=== PATIENT | male | born 1955 | race Caucasian/White ===

== ENCOUNTER 2022-09-21 12:29 | Emergency (ER) | payer MEDICARE, SELFPAY ==
[2022-09-21 13:01] VITALS: BP 178/108; PULSE 86; RESP 20; TEMP 36.3; O2SAT 100; BMI 24.3
[2022-09-21 15:41] VITALS: BP 182/91; PULSE 80; TEMP 36.6; O2SAT 99
--- NOTE | 2022-09-21 15:52 | W.ED.ABDPA2 ---
HPI - Abdominal Pain General: Chief Complaint: Abdominal Pain Stated Complaint: abd pain, constipation Time Seen by Provider: 09/21/22 15:51 History of Present Illness: Mr. Camp is a 67-year-old gentleman presenting to the emergency department for left lower quadrant abdominal pain. Symptoms started approximately 2 days ago with no known specific provoking event. He does note associated constipation. Since onset symptoms have become constant and dull. Denies urinary symptoms or radiation to the penis or testicles. No fevers. He has had nausea but no vomiting. No other specific changes in health, exacerbating, or alleviating factors identified. Onset (ago): day(s) Pain Consistency: constant Location: LLQ Quality: aching and sharp Exacerbating factors: nothing Relieving factors: nothing Associated Symptoms: Reports constipation and nausea Review of Systems General: Reports: 10 or more systems reviewed and unremarkable except in HPI and below GI: Reports: nausea and constipation PFS ED PFSH: Medical History (Updated 09/24/22 @ 23:08 by Steven Bal MD) No significant past medical history Surgical History (Updated 09/24/22 @ 23:08 by Steven Bal MD) No significant past surgical history Physical Exam Const: COMMON NORMALS: alert GENERAL APPEARANCE: cooperative and well developed HENMT: COMMON NORMALS: normocephalic and atraumatic HEAD & SCALP: normocephalic and atraumatic Eye: COMMON NORMALS: conjunctivae normal CONJUNCTIVA: Yes conjunctivae normal SCLERA: sclerae normal Neck/C-Spine: COMMON NORMALS: supple GENERAL: Yes trachea midline Resp: COMMON NORMALS: clear to auscultation bilaterally EFFORT & INSPECTION: Yes able to speak in complete sentences AUSCULTATION: clear to auscultation bilaterally Cardio: COMMON NORMALS: regular rate and regular rhythm RATE: regular rate RHYTHM: regular rhythm GI: COMMON NORMALS: Soft to palpation PALPATION: Yes Soft to palpation, Yes Tenderness to palpation present (GI) Details: LLQ, No Guarding due to palpation present (GI) and No Rigid due to palpation Extremity: GENERAL: Yes normal exam except as noted and No edema Neuro: COMMON NORMALS: moves all extremities SENSORIUM/ORIENTATION: Yes alert and No Orientation impaired Psych: COMMON NORMALS: mental status grossly normal and Normal thought process present THOUGHT PROCESS: Normal thought process present Course Vital Signs: Vital signs: Vital Signs Temperature 97.8 F 09/21/22 15:41 Pulse Rate 84 09/21/22 18:35 Respiratory Rate 18 09/21/22 18:35 Blood Pressure 175/71 09/21/22 17:48 Pulse Oximetry 95 09/21/22 18:35 Oxygen Delivery Me thod Room Air 09/21/22 16:48 MDM - Abdominal Pain Medical Decision Making 67-year-old gentleman presenting to the emergency department for left lower quadrant abdominal pain. No evidence of acute surgical abdomen. Labs with leukocytosis, normal hemoglobin, mild dehydration on metabolic panel with preserved renal function. Urinalysis with hematuria CT demonstrates mild left hydroureteronephrosis and stranding suspicious for infection and mild abnormality of the bladder. Incidental findings discussed with patient. On reassessment patient feels improved. Exact etiology of patient symptoms is unclear, perhaps related to recently passed kidney stone or urinary infection which will be treated. He does have constipation though this patient stool burden does not appear to correlate with location of pain. The results of ED evaluation were discussed with the patient including prescriptions and/or symptomatic cares (if applicable) including appropriate and responsible use, followup plan, and return precautions. The patient verbalized understanding and felt safe for discharge. Medical Records I reviewed the patient's medical records. Lab Data I reviewed the patient's lab results. 09/21/22 16:05 09/21/22 16:05 Labs/Radiology: Radiology Impressions Abdomen/Pelvis CT 09/21/22 16:16 IMPRESSION: 1. Mild left hydronephrosis with urothelial thickening and periureteral stranding. This is suspicious for infection of the left renal collecting system. No visible calculus. 2. Left perinephric stranding. Pyelonephritis is not excluded. 3. Mild asymmetric thickening of the right urinary bladder wall. This could be infectious but a neoplastic process is not excluded. Follow-up with cystoscopy recommended. Laboratory Results WBC 14.1 10^3/uL (4.0-10.0) H 09/21/22 16:05 RBC 5.20 10^6/uL (4.1-5.3) 09/21/22 16:05 Hgb 15.6 g/dL (11.7-16.6) 09/21/22 16:05 Hct 47.3 % (42.0-52.0) 09/21/22 16:05 MCV 91.0 fl (80-94) 09/21/22 16:05 MCH 30.0 pg (28.0-34.0) 09/21/22 16:05 MCHC 33.0 g/dL (30.0-36.0) 09/21/22 16:05 RDW 11.8 % (12.1-15.1) L 09/21/22 16:05 Plt Count 429 10^3/cmm (130-400) H 09/21/22 16:05 MPV 9.9 fL (7.4-10.4) 09/21/22 16:05 Neut % (Auto) 89.6 % 09/21/22 16:05 Lymph % (Auto) 4.2 % 09/21/22 16:05 Ellis % (Auto) 5.3 % 09/21/22 16:05 Eos % (Auto) 0.1 % 09/21/22 16:05 Baso % (Auto) 0.4 % 09/21/22 16:05 Neut # (Auto) 12.58 10^3/uL (1.8-7.7) H 09/21/22 16:05 Lymph # (Auto) 0.6 10^3/uL (0.8-4.8) L 09/21/22 16:05 Ellis # (Auto) 0.8 10^3/uL (0.2-0.9) 09/21/22 16:05 Eos # (Auto) 0.0 10^3/uL (0.0-0.8) 09/21/22 16:05 Baso # (Auto) 0.1 10^3/uL (0.0-0.1) 09/21/22 16:05 Nucleated RBC % (auto) 0 % 09/21/22 16:05 Nucleated RBCs # 0.0 /100WBC 09/21/22 16:05 Sodium 130 mmol/L (136-145) L 09/21/22 16:05 Potassium 4.2 mmol/L (3.5-5.1) 09/21/22 16:05 Chloride 93 mmol/L (98-107) L 09/21/22 16:05 Carbon Dioxide 24 mmol/L (22-29) 09/21/22 16:05 Anion Gap 17.2 (5-19) 09/21/22 16:05 BUN 16 mg/dL (8-23) 09/21/22 16:05 Creatinine 1.2 mg/dL (0.7-1.2) 09/21/22 16:05 GFR Calculation 60.4 mL/min (90-130) L 09/21/22 16:05 Glucose 141 mg/dL (65-115) H 09/21/22 16:05 Calculated Osmolality 274 mOsm/kg (285-295) L 09/21/22 16:05 Calcium 9.7 mg/dL (8.5-10.5) 09/21/22 16:05 Total Bilirubin 0.5 mg/dL (0.15-1.2) 09/21/22 16:05 AST 20 U/L (0-40) 09/21/22 16:05 ALT 22 U/L (0-41) 09/21/22 16:05 Alkaline Phosphatase 136 U/L (40-130) H 09/21/22 16:05 Total Protein 8.0 g/dL (6.6-8.7) 09/21/22 16:05 Albumin 4.5 g/dL (3.5-5.2) 09/21/22 16:05 Globulin 3.5 g/dL (1.3-4.6) 09/21/22 16:05 Lipase 14 U/L (13-60) 09/21/22 16:05 Urine Color Yellow (Yellow) 09/21/22 16:47 Urine Appearance Clear (CLEAR) 09/21/22 16:47 Urine pH 5 (5-7) 09/21/22 16:47 Ur Specific [place] 1.020 (1.005-1.030) 09/21/22 16:47 Urine Protein Trace (Negative) 09/21/22 16:47 Urine Glucose (UA) Norm (Normal) 09/21/22 16:47 Urine Ketones 1+ (Negative) H 09/21/22 16:47 Urine Blood 2+ (Negative) H 09/21/22 16:47 Urine Nitrate Negative (Negative) 09/21/22 16:47 Urine Bilirubin Neg (Negative) 09/21/22 16:47 Urine Urobilinogen Norm mg/dL (Negative) 09/21/22 16:47 Ur Leukocyte Esterase Trace (Negative) H 09/21/22 16:47 Urine RBC 0-4 /hpf (0-2) H 09/21/22 16:47 Urine WBC 0-4 /hpf (0-5) H 09/21/22 16:47 Ur Squamous Epith Cells None /hpf (0-5) 09/21/22 16:47 Amorphous Sediment Not Reportable 09/21/22 16:47 Urine Bacteria Trace /hpf (NONE) 09/21/22 16:47 Hyaline Casts 0-4 /lpf H 09/21/22 16:47 Urine Mucus 1+ /hpf 09/21/22 16:47 Discharge Plan Discharge Patient Disposition: Home Clinical Impression: Acute UTI, Colic, ureteral, Abdominal pain, acute, left lower quadrant, Dehydration, mild Condition: Stable Prescriptions: New ondansetron 4 mg tablet,disintegrating 4 mg PO Q8H PRN (Reason: nausea and vomiting) Qty: 15 0RF oxycodone 5 mg tablet 5 mg PO Q4H PRN (Reason: pain) Qty: 10 0RF ciprofloxacin HCl 500 mg tablet 500 mg PO BID Qty: 20 0RF tamsulosin 0.4 mg capsule 0.4 mg PO DAILY Qty: 20 0RF Discharge Orders: Discharge ED (Routine); Ordered 09/21/22 Ordered By: Steven Bal Discharge Diet: Usual diet Discharge Activity: Increase activity as tolerated Patient Instructions: Kidney Stones (ED), Hematuria (ED), Abdominal Pain (ED), Opioid Safety Activity Restrictions/Additional Instructions: Thank you for visiting the emergency department. You were seen and evaluated for abdominal pain. The exact cause of your symptoms is unclear though may be related to recently passed kidney stone or mild urinary tract infection. I will treat this with pain medication, use oxycodone cautiously as it is an opioid. We will also treat you with Flomax, antinausea medication, and antibiotics. You may use wqhj-[id number] medications such as acetaminophen and ibuprofen for pain however please do not exceed the daily recommended dosage as listed on the packaging and please keep in mind that many namebrand medications contain the same active ingredients. Please avoid these medications if previously instructed to do so by another physician due to other underlying medical condition. Please ensure that you are staying hydrated. Please follow-up with your primary care provider. As discussed I do recommend repeat urinalysis in 2 weeks to ensure that symptoms of resolved and referral from primary care to urology if symptoms persist. Return to the emergency department for increased pain, inability to tolerate medications, fevers, overall worsening, or anything else that you are concerned about and feel needs emergency department evaluation. Coding Level of Care Code ED [employer] Year [employer] for Ruslan Pedraza
[2022-09-21] MEDS: morphine 4 mg/mL SDV 1 mL IVP (16:04)
[2022-09-21 16:15] LABS: Basophils # 0.1 10^3/uL (0.0-0.1); Basophils % 0.4 %; Eosinophils % 0.1 %; Hematocrit 47.3 % (42.0-52.0); Hemoglobin 15.6 g/dL (11.7-16.6); Lymphocytes # 0.6 10^3/uL (0.8-4.8); Lymphocytes % 4.2 %; Mean Platelet Volume 9.9 fL (7.4-10.4); Monocytes # 0.8 10^3/uL (0.2-0.9); Monocytes % 5.3 %; Neutrophils # 12.58 10^3/uL (1.8-7.7); Neutrophils % 89.6 %; Nucleated Red Blood Cells % 0 %; Platelet Count 429 10^3/cmm (130-400); Red Cell Distribution Width 11.8 % (12.1-15.1); White Blood Count 14.1 10^3/uL (4.0-10.0)
--- NOTE | 2022-09-21 16:16 | CTR_ITS ---
PROCEDURE INFORMATION: Exam: CT Abdomen And Pelvis With Contrast Exam date and time: 09/21/2022 4:54 PM Age: 67 years old Clinical indication: Abdominal tenderness; Prior surgery; Surgery date: 6+ months; Surgery type: Hernia; Additional info: Llq pain TECHNIQUE: Imaging protocol: Computed tomography of the abdomen and pelvis with contrast. Radiation optimization: All CT scans at this facility use at least one of these dose optimization techniques: automated exposure control; mA and/or kV adjustment per patient size (includes targeted exams where dose is matched to clinical indication); or iterative reconstruction. Contrast material: OMNI 350; Contrast volume: 100 ml; Contrast route: INTRAVENOUS (IV); REPORTING DATA: Count of CT and Cardiac NM exams in prior 12 months: This patient has received 0 known CTs and 0 known cardiac nuclear medicine studies in the 12 months prior to the current study. COMPARISON: CT abdomen pelvis w con* [id number] 05/29/2016 4:42 AM RADIATION DOSE METRICS: Total DLP (mGy-cm): 508.33 FINDINGS: Tubes, catheters and devices: Clips in the right lower quadrant. Liver: Normal. No mass. Gallbladder and bile ducts: Normal. No calcified stones. No ductal dilation. Pancreas: Normal. No ductal dilation. Spleen: Normal. No splenomegaly. Adrenal glands: Normal. No mass. Kidneys and ureters: Mild left hydronephrosis. Urothelial thickening and mild enhancement in the left collecting system. No visible calculus. Mild perinephric stranding, left greater than right. Left periureteral fat stranding. Stomach and bowel: Mild diverticulosis of the colon. No diverticulitis. Appendix: The appendix is not visualized. No secondary signs of appendicitis. Intraperitoneal space: Unremarkable. No free air. No significant fluid collection. Vasculature: Arterial calcifications. No aneurysm. Lymph nodes: Small retroperitoneal lymph nodes are most likely reactive. Urinary bladder: Mild asymmetric thickening of the right lateral wall of the urinary bladder. Reproductive: Inhomogenous prostate with a calcification. Bones/joints: Degenerative changes at L5-S1. No fracture. Soft tissues: Right inguinal hernia containing fat and a short loop of nonobstructed distal small bowel. Small fat containing umbilical hernia. CT/CT abdomen pelvis w con* [id number] IMPRESSION: 1. Mild left hydronephrosis with urothelial thickening and periureteral stranding. This is suspicious for infection of the left renal collecting system. No visible calculus. 2. Left perinephric stranding. Pyelonephritis is not excluded. 3. Mild asymmetric thickening of the right urinary bladder wall. This could be infectious but a neoplastic process is not excluded. Follow-up with cystoscopy recommended.
[2022-09-21 16:34] LABS: Alanine Aminotransferase 22 U/L (0-41); Albumin Level 4.5 g/dL (3.5-5.2); Alkaline Phosphatase 136 U/L (40-130); Anion Gap 17.2 (5-19); Aspartate Amino Transferase 20 U/L (0-40); Blood Urea Nitrogen 16 mg/dL (8-23); Calcium 9.7 mg/dL (8.5-10.5); Carbon Dioxide 24 mmol/L (22-29); Chloride 93 mmol/L (98-107); Globulin 3.5 g/dL (1.3-4.6); Glomerular Filtration Rate 60.4 mL/min (90-130); Glucose 141 mg/dL (65-115); Lipase 14 U/L (13-60); Osmolality Calculated 274 mOsm/kg (285-295); Potassium 4.2 mmol/L (3.5-5.1); Sodium 130 mmol/L (136-145); Total Bilirubin 0.5 mg/dL (0.15-1.2)
[2022-09-21 16:48] VITALS: BP 183/88; PULSE 79; RESP 16; O2SAT 99
[2022-09-21] MEDS: iohexol 350 mg/mL 500 mL Btl (per mL) IV (16:59)
[2022-09-21 17:47] LABS: Add Urine Microscopic? YES; Bilirubin Urine Neg (Negative); Blood Urine 2+ (Negative); Glucose Urine UA Norm (Normal); Ketones Urine 1+ (Negative); Leukocyte Esterase Urine Trace (Negative); Nitrate Urine Negative (Negative); Protein Urine Trace (Negative); Urine Appearance Clear (CLEAR); Urine Color Yellow (Yellow); Urobilinogen Urine Norm (Negative); pH Urine 5 (5-7)
[2022-09-21 17:48] VITALS: BP 175/71; PULSE 68; RESP 16; O2SAT 98
[2022-09-21 17:48] LABS: Add Urine Culture? No; Bacteria Urine TRACE /hpf; Hyaline Casts Urine 0-4 /lpf; Mucus Urine 1+ /hpf; RBC Urine 0-4 /hpf (0-2); WBC Urine 0-4 /hpf (0-5)
[2022-09-21] MEDS: ketorolac 30 mg/mL INJ 15 MG IVP (17:59)
[2022-09-21 18:35] VITALS: PULSE 84; RESP 18; O2SAT 95
--- NOTE | 2022-09-25 10:38 | DCPLANNER ---
company manager was triggered to call patient due to no primary care physician - phone number for patient is the hospital phone number.
== END 2022-09-21 18:37 | disposition home or self-care (01) ==
PROVIDERS: Family Medicine; Emergency Provider Emergency Medicine
DX: N39.0 Urinary tract infection, site not specified (principal); N23 Unspecified renal colic; N13.30 Unspecified hydronephrosis; E86.0 Dehydration
CPT/HCPCS: 36415; 74177; 80053; 81001; 83690; 85025; 96374; 96375; 99285; J1885; J2270; Q9967

== ENCOUNTER 2023-08-22 16:43 | Inpatient (IN) | payer MEDICARE, MEDICAID, SELFPAY ==
[2023-08-22] VITALS (32 sets, daily range): BP systolic 87–132; BP diastolic 58–93; PULSE 83–142; RESP 9–27; TEMP 36.3–36.4; O2SAT 93–100; BMI 16.4; BMI 14.3
--- NOTE | 2023-08-22 16:47 | XRR_ITS ---
PROCEDURE INFORMATION: Exam: XR Abdomen Exam date and time: 08/22/2023 5:22 PM Age: 68 years old Clinical indication: Other: Diarrhea; Additional info: Weakness, diarrhea TECHNIQUE: Imaging protocol: Radiologic exam of the abdomen. Views: 2 Views. Upright and supine views. COMPARISON: CT abdomen pelvis w con* [id number] 09/21/2022 4:54 PM FINDINGS: Lungs: Included image of the chest demonstrates hyperinflation compatible with COPD without confluence consolidation. No obvious acute radiographic abnormality in the visualized mediastinum cardiac silhouette or osseous structures. Gastrointestinal tract: [id number] volume colonic stool. Evidence of free subdiaphragmatic air on the upright image. Intraperitoneal space: See Gastrointestinal tract finding. Bones/joints: [id number] degenerative endplate spurring in the mid lumbar spine. XR/XR acute abdomen series [id number] IMPRESSION: [id number] amount of retained formed colonic stool.
--- NOTE | 2023-08-22 17:01 | PC.NURSE ---
UNABLE TO OBTAIN O2 AT TRIAGE. ATTEMPTED FINGER PROBE, EAR PROBE, AND FOREHEAD SENSOR. DERRICK, RT, PRESENT AT TRIAGE. PROVIDER NOTIFIED.
--- NOTE | 2023-08-22 17:09 | W.ED.WEAKNES ---
Documented by User: Karina Garza MD 08/22/23 17:58 HPI - Weakness General: Chief complaint: Weakness Stated complaint: WEAKNESS Time Seen by Provider: 08/22/23 16:45 History of Present Illness: 68-year-old man with a history of dementia, hyperlipidemia and BPH who presents to the emergency room by ambulance that was called by a predictive maintenance technician who had not seen him in a while. He had found him on the floor of his home. Patient says he has had diarrhea for about a month. He had collapsed to the ground yesterday and could not get up. He said he is becoming more and more weak. No focal abdominal pain. No chest pain. No focal motor deficits. He is alert and oriented and follows commands and answers questions appropriately. He appears extremely cachectic and dry. Review of Systems Narrative: Constitutional symptoms: Negative except as documented in HPI. Skin symptoms: Negative except as documented in HPI. Eye symptoms: Negative except as documented in HPI. ENMT symptoms: Negative except as documented in HPI. Respiratory symptoms: Negative except as documented in HPI. Cardiovascular symptoms: Negative except as documented in HPI. Gastrointestinal symptoms: Negative except as documented in HPI. Genitourinary symptoms: Negative except as documented in HPI. Musculoskeletal symptoms: Negative except as documented in HPI. Neurologic symptoms: Negative except as documented in HPI. Psychiatric symptoms: Negative except as documented in HPI. Endocrine symptoms: Negative except as documented in HPI. [facility] ED PFSH: Medical History (Updated 08/22/23 @ 21:17 by Benoit Vargas DO) Psychiatric care No significant past medical history Surgical History (Updated 09/24/22 @ 23:08 by Steven Bal MD) No significant past surgical history Physical Exam Narrative: EXAM NARRATIVE: General: Patient appears somewhat ill and extremely cachectic. He has temporal wasting. Skin: Warm, dry. Head: Normocephalic, atraumatic. Neck: Supple, trachea midline. Eye: Extraocular movements are intact. Ears, nose, mouth and throat: Dry oral mucosa Cardiovascular: Regular, Normal peripheral perfusion. Respiratory: Lungs are clear to auscultation, respirations are non-labored, breath sounds are equal, Symmetrical chest wall expansion. Gastrointestinal: Soft, Nontender, Non distended, Normal bowel sounds. Musculoskeletal: Normal ROM, no deformity. Neurological: Alert and oriented, No focal neurological deficit observed. Psychiatric: Cooperative, appropriate mood & affect. Course Vital Signs: Vital signs: Vital Signs Temperature 97.3 F L 08/22/23 16:45 Pulse Rate 91 08/22/23 20:45 Respiratory Rate 20 H 08/22/23 20:45 Blood Pressure 106/73 08/22/23 20:45 Pulse Oximetry 99 08/22/23 20:45 Oxygen Delivery Me thod Room Air 08/22/23 18:45 MDM - Weakness Medical Decision Making Medical decision making: Differential diagnosis including but not limited to and based on the above HPI, review of systems and physical exam: In this elderly patient with generalized nonfocal weakness with diarrhea I would have concern for renal failure. Will check a CBC for anemia and possible leukocytosis. He reports no recent antibiotics so C. difficile is not high on my differential but CBC will help delineate that. Also ordering a CK as he has been on the ground. Orders placed to evaluate differential diagnosis based on the above differential, HPI and physical exam Lab Review: Laboratory results were reviewed and interpreted by myself the emergency room physician. So far with his back is a CBC. White count is 9.5. Patient is not anemic with a hemoglobin of 15.9. EKG: Time 1705 p.m. rate 118. Sinus tachycardia. Pulmonary disease pattern, No ST-T changes, no ectopy, normal IA & QRS intervals, This was reviewed and interpreted by myself the ER physician. Acute abdominal series: chest x-ray: Emphysematous appearing lungs with slightly flattened diaphragms. The right diaphragm was not seen on these x-rays. No acute process. No obvious infiltrates. No pneumothorax. No cardiomegaly. This was reviewed and interpreted by myself the emergency room physician Abdomen x-ray: What appears to be constipation with balls of stool throughout the colon. There appears to be gas throughout the bowels. I do not see any signs of obstruction. Nonspecific bowel gas pattern. No evidence of free air or obstruction. This was reviewed and interpreted by myself the emergency room physician. Patient care transitioned to oncoming doc at shift change. Lab Data 08/22/23 17:25 08/22/23 17:25 Radiology Impressions Chest/Abdomen X-ray 08/22/23 16:47 IMPRESSION: Qmisidrh-yf-crglw amount of retained formed colonic stool. Abdomen/Pelvis CT 08/22/23 18:24 IMPRESSION: 1. Findings consistent with locally advanced (likely T4) rectal neoplasm until proven otherwise. Nodular perirectal soft tissue abutting the pelvic floor and right seminal vesicle. Serosal deposit along the distal sigmoid. Right periorbital/ischiorectal abscess or contained perforation appears to be present, up to 3.5 x 1.6 cm. 2. Nodular thickening of the adrenal suspicious for metastatic disease is new since 09/21/2022 . Mildly enlarged celiac and gastrohepatic lymph nodes . Right upper quadrant omental nodularity versus adenopathy. 3. Findings consistent with large volume deep vein thrombus in the left iliac and femoral veins. 4. Severe weight loss compared to 09/21/2022 scan. Tmmpxnal-ay-fkgrh volume colonic stool retention. ADDENDUM: 08/22/231922 COMMENT: THIS REPORT CONTAINS FINDINGS THAT MAY BE CRITICAL TO PATIENT CARE. The exam findings were verbally communicated by me to BENOIT Munoz via telephone conference at 7:19 PM CDT on 08/22/2023. The findings were acknowledged and understood. Laboratory Results WBC 9.57 10^3/uL (3.29-11.43) 08/22/23 17:25 RBC 5.45 10^6/uL (3.85-5.65) 08/22/23 17:25 Hgb 15.90 g/dL (11.27-16.99) 08/22/23 17:25 Hct 50.3 % (37-53) 08/22/23 17:25 MCV 92.3 fl (82-101) 08/22/23 17:25 MCH 29.2 pg (27-33) 08/22/23 17: MCHC 31.6 g/dL (30-55) 08/22/23 17:25 RDW 17.1 % (12.1-15.1) H 08/22/23 17:25 Plt Count 417 10^3/cmm (157-399) H 08/22/23 17:25 MPV 10.8 fL (7.4-10.4) H 08/22/23 17:25 Neut % (Auto) 83.2 % 08/22/23 17: Lymph % (Auto) 12.2 % 08/22/23 17: Swift % (Auto) 3.9 % 08/22/23 17:25 Eos % (Auto) 0.1 % 08/22/23 17:25 Baso % (Auto) 0.4 % 08/22/23 17:25 Neut # (Auto) 7.96 10^3/uL (1.8-7.7) H 08/22/23 17:25 Lymph # (Auto) 1.2 10^3/uL (0.8-4.8) 08/22/23: Swift # (Auto) 0.4 10^3/uL (0.2-0.9) 08/22/23 17:25 Eos # (Auto) 0.0 10^3/uL (0.0-0.8) 08/22/23 17: Baso # (Auto) 0.0 10^3/uL (0.0-0.1) 08/22/23: Nucleated RBC % (auto) 0 % 08/22/23: Nucleated RBCs # 0.0 /100WBC 08/22/23 17:25 Sodium 137 mmol/L (136-145) 08/22/23 17: Potassium 4.6 mmol/L (3.5-5.1) 08/22/23 17: Chloride 89 mmol/L (98-107) L 08/22/23:25 Carbon Dioxide 25 mmol/L (22-29) 08/22/23 17:25 Anion Gap 27.6 (5-19) H 08/22/23 17:25 BUN 40 mg/dL (8-23) H 08/22/23 17:25 Creatinine 1.5 mg/dL (0.7-1.2) H 08/22/23 17:25 GFR Calculation 46.5 mL/min (90-130) L 08/22/23 17:25 Glucose 161 mg/dL (65-115) H 08/22/23 17:25 Calculated Osmolality 297 mOsm/kg (285-295) H 08/22/23 17:25 Lactic Acid 5.5 mmol/L (0.5-2.2) H* 08/22/23 17:25 Calcium 10.3 mg/dL (8.5-10.5) 08/22/23 17: Magnesium 2.4 mg/dL (1.7-2.3) H 08/22/23 17:25 Total Bilirubin 2.9 mg/dL (0.15-1.2) H 08/22/23 17:25 AST 15 U/L (0-40) 08/22/23 17:25 ALT 8 U/L (0-41) 08/22/23 17:25 Alkaline Phosphatase 144 U/L (40-130) H 08/22/23 17:25 Creatine Kinase 23 U/L (39-308) L 08/22/23 17:25 C-Reactive Protein 14.3 mg/L (0.0-4.9) H 08/22/23 17:25 Total Protein 7.1 g/dL (6.6-8.7) 08/22/23 17: Albumin 3.6 g/dL (3.5-5.2) 08/22/23 17: Globulin 3.5 g/dL (1.3-4.6) 08/22/23 17:25 Amylase 27 U/L (28-100) L 08/22/23 17: Lipase 14 U/L (13-60) 08/22/23 17:25 Urine Color Brown (Yellow) A 08/22/23 20:10 Urine Appearance Clear (CLEAR) 08/22/23 20:10 Urine pH 5 (5-7) 08/22/23 20:10 Ur Specific Melville 1.020 (1.005-1.030) 08/22/23 20:10 Urine Protein 1+ (Negative) H 08/22/23 20:10 Urine Glucose (UA) Norm (Normal) 08/22/23 20:10 Urine Ketones 1+ (Negative) H 08/22/23 20:10 Urine Blood Trace (Negative) H 08/22/23 20:10 Urine Nitrate Positive (Negative) H 08/22/23 20:10 Urine Bilirubin 2+ (Negative) H 08/22/23 20:10 Urine Urobilinogen 4+ mg/dL (Negative) H 08/22/23 20:10 Ur Leukocyte Esterase Trace (Negative) H 08/22/23 20:10 Urine RBC 5-10 /hpf (0-2) H 08/22/23 20:10 Urine WBC 5-10 /hpf (0-5) H 08/22/23 20:10 Ur Squamous Epith Cells 0-4 /hpf (0-5) H 08/22/23 20:10 Amorphous Sediment 1+ /hpf 08/22/23 20:10 Urine Bacteria 2+ /hpf (NONE) H 08/22/23 20:10 Hyaline Casts 0-4 /lpf H 08/22/23 20:10 Urine Mucus 2+ /hpf 08/22/23 20:10 Serum Ketones Negative (Negative) 08/22/23 17:25 XR interpretation done by ED provider, pending radiology final review Discharge Plan Discharge Patient Disposition: Placed in Observation Clinical Impression: Rectal mass, Acute dehydration, Acidosis, lactic Condition: Serious Coding Level of Care Code ED Manager Books for Chg Fwd Documented by User: Benoit Vargas DO 08/22/23 21:17 HPI - Weakness General: Chief complaint: Weakness Stated complaint: WEAKNESS Time Seen by Provider: 08/22/23 16:45 PFS ED PFSH: Medical History (Updated 08/22/23 @ 21:17 by Benoit Vargas DO) Psychiatric care No significant past medical history Surgical History (Updated 09/24/22 @ 23:08 by Steven Bal MD) No significant past surgical history Course Vital Signs: Vital signs: Vital Signs Temperature 97.3 F L 08/22/23 16:45 Pulse Rate 91 08/22/23 20:45 Respiratory Rate 20 H 08/22/23 20:45 Blood Pressure 106/73 08/22/23 20:45 Pulse Oximetry 99 08/22/23 20:45 Oxygen Delivery Me thod Room Air 08/22/23 18:45 MDM - Weakness Medical Decision Making Medical decision making: Differential diagnosis including but not limited to and based on the above HPI, review of systems and physical exam: In this elderly patient with generalized nonfocal weakness with diarrhea I would have concern for renal failure. Will check a CBC for anemia and possible leukocytosis. He reports no recent antibiotics so C. difficile is not high on my differential but CBC will help delineate that. Also ordering a CK as he has been on the ground. Orders placed to evaluate differential diagnosis based on the above differential, HPI and physical exam Lab Review: Laboratory results were reviewed and interpreted by myself the emergency room physician. So far with his back is a CBC. White count is 9.5. Patient is not anemic with a hemoglobin of 15.9. EKG: Time 1705 p.m. rate 118. Sinus tachycardia. Pulmonary disease pattern, No ST-T changes, no ectopy, normal IA & QRS intervals, This was reviewed and interpreted by myself the ER physician. Acute abdominal series: chest x-ray: Emphysematous appearing lungs with slightly flattened diaphragms. The right diaphragm was not seen on these x-rays. No acute process. No obvious infiltrates. No pneumothorax. No cardiomegaly. This was reviewed and interpreted by myself the emergency room physician Abdomen x-ray: What appears to be constipation with balls of stool throughout the colon. There appears to be gas throughout the bowels. I do not see any signs of obstruction. Nonspecific bowel gas pattern. No evidence of free air or obstruction. This was reviewed and interpreted by myself the emergency room physician. Patient care transitioned to oncoming doc at shift change. Patient taken over at shift change. This patient has a rectal mass with what appears to be occlusion or near occlusion of the lumen. There is constipation that is significant. His lactic acid is 5.5. He is received more fluid than required for sepsis bolus. Antibiotics will be started. There is a small abscess with perforation of the mass apparent. I spoke with our surgeon, who is a general surgeon, who is concerned about trying to treat the patient here. Suggest consultation with colorectal surgery. We have a call out to other facilities for this. Spoke with Dr. Champion, colorectal surgery at [facility] in [place]. She has taken a look at the patient's images. She is not as concerned about the small perforation/fluid collection, and she believes it is part of the chronic mass process. She notes that if the patient looks clinically okay otherwise, she would allow the patient home, on antibiotics to be safe, although he probably does not necessarily need them, and follow him up as an outpatient for colonoscopy, diagnosis, etc. Since the patient is quite weak, has a lactic of 5.5, needs fluid resuscitation, and further acute treatment, we will observe here, do the above, and likely release for colorectal surgery recommendations as above once treated. Spoke with hospitalist, he agrees to see the patient. Lab Data 08/22/23 17:25 08/22/23 17:25 Radiology Impressions Chest/Abdomen X-ray 08/22/23 16:47 IMPRESSION: Trfoitle-is-rfdws amount of retained formed colonic stool. Abdomen/Pelvis CT 08/22/23 18:24 IMPRESSION: 1. Findings consistent with locally advanced (likely T4) rectal neoplasm until proven otherwise. Nodular perirectal soft tissue abutting the pelvic floor and right seminal vesicle. Serosal deposit along the distal sigmoid. Right periorbital/ischiorectal abscess or contained perforation appears to be present, up to 3.5 x 1.6 cm. 2. Nodular thickening of the adrenal suspicious for metastatic disease is new since 09/21/2022 . Mildly enlarged celiac and gastrohepatic lymph nodes . Right upper quadrant omental nodularity versus adenopathy. 3. Findings consistent with large volume deep vein thrombus in the left iliac and femoral veins. 4. Severe weight loss compared to 09/21/2022 scan. Jadmxxvu-ql-optmb volume colonic stool retention. ADDENDUM: 08/22/231922 COMMENT: THIS REPORT CONTAINS FINDINGS THAT MAY BE CRITICAL TO PATIENT CARE. The exam findings were verbally communicated by me to BENOIT Munoz via telephone conference at 7:19 PM CDT on 08/22/2023. The findings were acknowledged and understood. Laboratory Results WBC 9.57 10^3/uL (3.29-11.43) 08/22/23 17: RBC 5.45 10^6/uL (3.85-5.65) 08/22/23 17: Hgb 15.90 g/dL (11.27-16.99) 08/22/23 17: Hct 50.3 % (37-53) 08/22/23 17: MCV 92.3 fl (82-101) 08/22/23 17: MCH 29.2 pg (27-33) 08/22/23 17: MCHC 31.6 g/dL (30-55) 08/22/23 17: RDW 17.1 % (12.1-15.1) H 08/22/23 17: Plt Count 417 10^3/cmm (157-399) H 08/22/23 17: MPV 10.8 fL (7.4-10.4) H 08/22/23 17: Neut % (Auto) 83.2 % 08/22/23 17: Lymph % (Auto) 12.2 % 08/22/23: Swift % (Auto) 3.9 % 08/22/23: Eos % (Auto) 0.1 % 08/22/23: Baso % (Auto) 0.4 % 08/22/23: Neut # (Auto) 7.96 10^3/uL (1.8-7.7) H 08/22/23: Lymph # (Auto) 1.2 10^3/uL (0.8-4.8) 08/22/23: Swift # (Auto) 0.4 10^3/uL (0.2-0.9) 08/22/23: Eos # (Auto) 0.0 10^3/uL (0.0-0.8) 08/22/23: Baso # (Auto) 0.0 10^3/uL (0.0-0.1) 08/22/23: Nucleated RBC % (auto) 0 % 08/22/23 Nucleated RBCs # 0.0 /100WBC 08/22/23: Sodium 137 mmol/L (136-145) 08/22/23: Potassium 4.6 mmol/L (3.5-5.1) 08/22/23: Chloride 89 mmol/L (98-107) L 08/22/23: Carbon Dioxide 25 mmol/L (22-29) 08/22/23 17:25 Anion Gap 27.6 (5-19) H 08/22/23 17:25 BUN 40 mg/dL (8-23) H 08/22/23:25 Creatinine 1.5 mg/dL (0.7-1.2) H 08/22/23:25 GFR Calculation 46.5 mL/min (90-130) L 08/22/23: Glucose 161 mg/dL (65-115) H 08/22/23:25 Calculated Osmolality 297 mOsm/kg (285-295) H 08/22/23 17:25 Lactic Acid 5.5 mmol/L (0.5-2.2) H* 08/22/23 17:25 Calcium 10.3 mg/dL (8.5-10.5) 08/22/23 17:25 Magnesium 2.4 mg/dL (1.7-2.3) H 08/22/23 17:25 Total Bilirubin 2.9 mg/dL (0.15-1.2) H 08/22/23 17:25 AST 15 U/L (0-40) 08/22/23 17:25 ALT 8 U/L (0-41) 08/22/23 17:25 Alkaline Phosphatase 144 U/L (40-130) H 08/22/23 17:25 Creatine Kinase 23 U/L (39-308) L 08/22/23 17:25 C-Reactive Protein 14.3 mg/L (0.0-4.9) H 08/22/23 17:25 Total Protein 7.1 g/dL (6.6-8.7) 08/22/23 17: Albumin 3.6 g/dL (3.5-5.2) 08/22/23 17: Globulin 3.5 g/dL (1.3-4.6) 08/22/23 17: Amylase 27 U/L (28-100) L 08/22/23 17: Lipase 14 U/L (13-60) 08/22/23 17:25 Urine Color Brown (Yellow) A 08/22/23 20:10 Urine Appearance Clear (CLEAR) 08/22/23 20:10 Urine pH 5 (5-7) 08/22/23 20:10 Ur Specific Melville 1.020 (1.005-1.030) 08/22/23 20:10 Urine Protein 1+ (Negative) H 08/22/23 20:10 Urine Glucose (UA) Norm (Normal) 08/22/23 20:10 Urine Ketones 1+ (Negative) H 08/22/23 20:10 Urine Blood Trace (Negative) H 08/22/23 20:10 Urine Nitrate Positive (Negative) H 08/22/23 20:10 Urine Bilirubin 2+ (Negative) H 08/22/23 20:10 Urine Urobilinogen 4+ mg/dL (Negative) H 03/17/24 20:10 Ur Leukocyte Esterase Trace (Negative) H 08/22/23 20:10 Urine RBC 5-10 /hpf (0-2) H 08/22/23 20:10 Urine WBC 5-10 /hpf (0-5) H 08/22/23 20:10 Ur Squamous Epith Cells 0-4 /hpf (0-5) H 08/22/23 20:10 Amorphous Sediment 1+ /hpf 08/22/23 20:10 Urine Bacteria 2+ /hpf (NONE) H 08/22/23 20:10 Hyaline Casts 0-4 /lpf H 08/22/23 20:10 Urine Mucus 2+ /hpf 08/22/23 20:10 Serum Ketones Negative (Negative) 08/22/23 17:25 Discharge Plan Discharge Patient Disposition: Placed in Observation Clinical Impression: Rectal mass, Acute dehydration, Acidosis, lactic Condition: Serious Coding Level of Care Code ED Manager Books for Ruslan Pedraza
[2023-08-22] MEDS: sodium chloride 0.9% 1,000 ML 999 ML IV ×2 (17:29→19:03)
[2023-08-22 17:37] LABS: Basophils % 0.4 %; Eosinophils % 0.1 %; Hematocrit 50.3 % (37-53); Lymphocytes # 1.2 10^3/uL (0.8-4.8); Lymphocytes % 12.2 %; Mean Corpuscular HGB Conc 31.6 g/dL (30-55); Mean Corpuscular Hemoglobin 29.2 pg (27-33); Mean Corpuscular Volume 92.3 fl (82-101); Mean Platelet Volume 10.8 fL (7.4-10.4); Monocytes # 0.4 10^3/uL (0.2-0.9); Monocytes % 3.9 %; Neutrophils # 7.96 10^3/uL (1.8-7.7); Neutrophils % 83.2 %; Nucleated Red Blood Cells % 0 %; Platelet Count 417 10^3/cmm (157-399); Red Blood Count 5.45 10^6/uL (3.85-5.65); Red Cell Distribution Width 17.1 % (12.1-15.1); White Blood Count 9.57 10^3/uL (3.29-11.43)
[2023-08-22 17:50] LABS: Ketone (Acetest) Serum Negative (Negative)
[2023-08-22 18:01] LABS: Alanine Aminotransferase 8 U/L (0-41); Albumin Level 3.6 g/dL (3.5-5.2); Alkaline Phosphatase 144 U/L (40-130); Amylase 27 U/L (28-100); Anion Gap 27.6 (5-19); Aspartate Amino Transferase 15 U/L (0-40); Blood Urea Nitrogen 40 mg/dL (8-23); Calcium 10.3 mg/dL (8.5-10.5); Carbon Dioxide 25 mmol/L (22-29); Chloride 89 mmol/L (98-107); Creatine Phosphokinase 23 U/L (39-308); Globulin 3.5 g/dL (1.3-4.6); Glomerular Filtration Rate 46.5 mL/min (90-130); Glucose 161 mg/dL (65-115); Lipase 14 U/L (13-60); Magnesium 2.4 mg/dL (1.7-2.3); Osmolality Calculated 297 mOsm/kg (285-295); Potassium 4.6 mmol/L (3.5-5.1); Sodium 137 mmol/L (136-145); Total Bilirubin 2.9 mg/dL (0.15-1.2); Total Protein 7.1 g/dL (6.6-8.7)
[2023-08-22 18:08] LABS: Lactic Sepsis W/Reflex 5.5 mmol/L (0.5-2.2)
--- NOTE | 2023-08-22 18:24 | CTR_ITS ---
PROCEDURE INFORMATION: Exam: CT Abdomen And Pelvis With Contrast Exam date and time: 08/22/2023 6:37 PM Age: 68 years old Clinical indication: Other: Diarrhea; Abdominal pain; Generalized; Additional info: Abd pain, diarrhea, sepsis TECHNIQUE: Imaging protocol: Computed tomography of the abdomen and pelvis with contrast. Radiation optimization: All CT scans at this facility use at least one of these dose optimization techniques: automated exposure control; mA and/or kV adjustment per patient size (includes targeted exams where dose is matched to clinical indication); or iterative reconstruction. Contrast material: OMNI 350; Contrast volume: 75 ml; Contrast route: INTRAVENOUS (IV); COMPARISON: CT abdomen pelvis w con* [id number] 09/21/2022 4:54 PM RADIATION DOSE METRICS: Total DLP (mGy-cm): 297.93 FINDINGS: Lungs: Mild bandlike a atelectasis in the bilateral lower lobes. Liver: Mild periportal edema. Gallbladder and bile ducts: No gallbladder is mildly distended without wall thickening. Pancreas: Diffuse aipu-bu-mhozrxrk involutional atrophy of the pancreas again noted without clear-cut ductal dilatation or focal lesion. Spleen: Normal. No splenomegaly. Adrenal glands: Nodular thickening of the left adrenal gland measuring up to 1.6 x 1 cm has developed corresponding to minimal nodularity on prior study. Mild thickening of the right adrenal gland has also developed without clear-cut measurable nodule. Kidneys and ureters: Nonobstructive 2 mm left renal stone is new. No hydronephrosis. Stomach and bowel: Pput-nx-vsiilssy wall thickening of the rectum , increased from prior. A focal band of soft tissue that appears tethered to the mesorectal fascia in the right posterior paramedian region (series 3, image 52) . Nodular rectal wall thickening measuring up to 1.7 x 1.6 cm (image 62) , adjacent hyperenhancing soft tissue nodularity up to 2.9 x 1.6 cm in the right mesorectum, abutting the base of the right seminal vesicle (series 3 image 62) as well as the lateral wall of the rectum, pelvic floor and adjacent rectosigmoid junction (series 5, image 39) . Additional nodularity up to 2 cm in the mesorectum/meso sigmoid (image 40). Appendix: the appendix is not visualized. Presumed appendectomy. Intraperitoneal space: Enhancing omental nodules versus adenopathy in the right upper quadrant (image 27).. No free air. No significant fluid collection. Vasculature: Findings consistent with large volume deep vein thrombus in the visualized left femoral vein, profundus femoris vein and left external and common iliac veins to the bifurcation level. Lymph nodes: Several mildly enlarged gastrohepatic ligament and periportal lymph nodes have developed to 1 3 cm in diameter. No other adenopathy identified. Urinary bladder: A 3 mm stone is present in the left bladder base/UV junction, new. Bladder is moderately distended with mild wall thickening similar to prior. Reproductive: Prostate is moderately enlarged. Bones/joints: Moderate facet arthropathy in the lower lumbar spine. Moderate to advanced disc space narrowing and endplate sclerosis and vacuum phenomenon at L5-S1 level. Usebhwun-mm-mnogl disc bulge with canal stenosis at L5-S1 level, unchanged. Soft tissues: Significant diffuse loss of the subcutaneous fat and mesenteric fat has occurred consistent with significant weight loss. Further inferiorly there is and apparent extraluminal collection measuring 3.5 x 1.6 cm in the right ischiorectal fossa (image 70) suggestive of contained perforation/perirectal abscess. Large amount of solid stool throughout the right and left colon. CT/CT abdomen pelvis w con* [id number] IMPRESSION: 1. Findings consistent with locally advanced (likely T4) rectal neoplasm until proven otherwise. Nodular perirectal soft tissue abutting the pelvic floor and right seminal vesicle. Serosal deposit along the distal sigmoid. Right periorbital/ischiorectal abscess or contained perforation appears to be present, up to 3.5 x 1.6 cm. 2. Nodular thickening of the adrenal suspicious for metastatic disease is new since 09/21/2022 . Mildly enlarged celiac and gastrohepatic lymph nodes . Right upper quadrant omental nodularity versus adenopathy. 3. Findings consistent with large volume deep vein thrombus in the left iliac and femoral veins. 4. Severe weight loss compared to 09/21/2022 scan. Ixxvvawr-mg-jatom volume colonic stool retention.
[2023-08-22] MEDS: iohexol 350 mg/mL 500 mL Btl (per mL) IV (18:37)
[2023-08-22 19:00] LABS: C Reactive Protein 14.3 mg/L (0.0-4.9)
[2023-08-22 19:22] LABS: Reflex Lactate Order REFLEX LACTIC ORDERD
[2023-08-22 20:32] LABS: Bilirubin Urine 2+ (Negative); Blood Urine Trace (Negative); Glucose Urine UA Norm (Normal); Ketones Urine 1+ (Negative); Nitrate Urine Positive (Negative); Protein Urine 1+ (Negative); Urine Appearance Clear (CLEAR); Urine Color Brown (Yellow); Urobilinogen Urine 4+ mg/dL (Negative); pH Urine 5 (5-7)
[2023-08-22 20:33] LABS: Add Urine Culture? Yes; Amorphous Sediment Urine 1+ /hpf; Bacteria Urine 2+ /hpf; Hyaline Casts Urine 0-4 /lpf; Leukocyte Esterase Urine Trace (Negative); Mucus Urine 2+ /hpf; Squamous Epithelial Cell Urine 0-4 /hpf (0-5)
[2023-08-22] MEDS: piperacillin-tazobactam 3.375 GM in sodium chloride 0.9% (plus) 50 ML IV (20:58)
--- NOTE | 2023-08-22 21:17 | W.ED.WEAKNES ---
HPI - Weakness General: Chief complaint: Weakness Stated complaint: WEAKNESS Time Seen by Provider: 08/22/23 16:45 [facility] ED PFSH: Medical History (Updated 08/22/23 @ 21:17 by eBnoit Vargas DO) Psychiatric care No significant past medical history Surgical History (Updated 09/24/22 @ 23:08 by Steven Bal MD) No significant past surgical history Course Vital Signs: Vital signs: Vital Signs Temperature 97.3 F L 08/22/23 16:45 Pulse Rate 91 08/22/23 20:45 Respiratory Rate 20 H 08/22/23 20:45 Blood Pressure 106/73 08/22/23 20:45 Pulse Oximetry 99 08/22/23 20:45 Oxygen Delivery Me thod Room Air 08/22/23 18:45 MDM - Weakness Lab Data 08/22/23 17:25 08/22/23 17:25 Radiology Impressions Chest/Abdomen X-ray 08/22/23 16:47 IMPRESSION: Jwvbvcee-[id number]-nzcza amount of retained formed colonic stool. Abdomen/Pelvis CT 08/22/23 18:24 IMPRESSION: 1. Findings consistent with locally advanced (likely T4) rectal neoplasm until proven otherwise. Nodular perirectal soft tissue abutting the pelvic floor and right seminal vesicle. Serosal deposit along the distal sigmoid. Right periorbital/ischiorectal abscess or contained perforation appears to be present, up to 3.5 x 1.6 cm. 2. Nodular thickening of the adrenal suspicious for metastatic disease is new since 09/21/2022 . Mildly enlarged celiac and gastrohepatic lymph nodes . Right upper quadrant omental nodularity versus adenopathy. 3. Findings consistent with large volume deep vein thrombus in the left iliac and femoral veins. 4. Severe weight loss compared to 09/21/2022 scan. Ojjitali-db-kptgd volume colonic stool retention. ADDENDUM: 08/22/231922 COMMENT: THIS REPORT CONTAINS FINDINGS THAT MAY BE CRITICAL TO PATIENT CARE. The exam findings were verbally communicated by me to BENOIT Munoz via telephone conference at 7:19 PM CDT on 08/22/2023. The findings were acknowledged and understood. Laboratory Results WBC 9.57 10^3/uL (3.29-11.43) 08/22/23 17:25 RBC 5.45 10^6/uL (3.85-5.65) 08/22/23: Hgb 15.90 g/dL (11.27-16.99) 08/22/23: Hct 50.3 % (37-53) 08/22/23: MCV 92.3 fl (82-101) 08/22/23: MCH 29.2 pg (27-33) 08/22/23: MCHC 31.6 g/dL (30-55) 08/22/23: RDW 17.1 % (12.1-15.1) H 08/22/23: Plt Count 417 10^3/cmm (157-399) H 08/22/23: MPV 10.8 fL (7.4-10.4) H 08/22/23: Neut % (Auto) 83.2 % 08/22/23: Lymph % (Auto) 12.2 % 08/22/23: Toombs % (Auto) 3.9 % 08/22/23: Eos % (Auto) 0.1 % 08/22/23: Baso % (Auto) 0.4 % 08/22/23: Neut # (Auto) 7.96 10^3/uL (1.8-7.7) H 08/22/23: Lymph # (Auto) 1.2 10^3/uL (0.8-4.8) 08/22/23: Toombs # (Auto) 0.4 10^3/uL (0.2-0.9) 08/22/23: Eos # (Auto) 0.0 10^3/uL (0.0-0.8) 08/22/23: Baso # (Auto) 0.0 10^3/uL (0.0-0.1) 08/22/23: Nucleated RBC % (auto) 0 % 08/22/23: Nucleated RBCs # 0.0 /100WBC 08/22/23: Sodium 137 mmol/L (136-145) 08/22/23: Potassium 4.6 mmol/L (3.5-5.1) 08/22/23:25 Chloride 89 mmol/L (98-107) L 08/22/23 17:25 Carbon Dioxide 25 mmol/L (22-29) 08/22/23 17:25 Anion Gap 27.6 (5-19) H 08/22/23 17:25 BUN 40 mg/dL (8-23) H 08/22/23 17:25 Creatinine 1.5 mg/dL (0.7-1.2) H 08/22/23 17:25 GFR Calculation 46.5 mL/min (90-130) L 08/22/23 17:25 Glucose 161 mg/dL (65-115) H 08/22/23 17:25 Calculated Osmolality 297 mOsm/kg (285-295) H 08/22/23 17:25 Lactic Acid 5.5 mmol/L (0.5-2.2) H* 08/22/23 17:25 Calcium 10.3 mg/dL (8.5-10.5) 08/22/23: Magnesium 2.4 mg/dL (1.7-2.3) H 08/22/23 17:25 Total Bilirubin 2.9 mg/dL (0.15-1.2) H 08/22/23 17:25 AST 15 U/L (0-40) 08/22/23 17:25 ALT 8 U/L (0-41) 08/22/23 17:25 Alkaline Phosphatase 144 U/L (40-130) H 08/22/23 17:25 Creatine Kinase 23 U/L (39-308) L 08/22/23 17:25 C-Reactive Protein 14.3 mg/L (0.0-4.9) H 08/22/23 17:25 Total Protein 7.1 g/dL (6.6-8.7) 08/22/23 17:25 Albumin 3.6 g/dL (3.5-5.2) 08/22/23 17:25 Globulin 3.5 g/dL (1.3-4.6) 08/22/23 17:25 Amylase 27 U/L (28-100) L 08/22/23 17:25 Lipase 14 U/L (13-60) 08/22/23 17:25 Urine Color Brown (Yellow) A 08/22/23 20:10 Urine Appearance Clear (CLEAR) 08/22/23 20:10 Urine pH 5 (5-7) 08/22/23 20:10 Ur Specific [place] 1.020 (1.005-1.030) 08/22/23 20:10 Urine Protein 1+ (Negative) H 08/22/23 20:10 Urine Glucose (UA) Norm (Normal) 08/22/23 20:10 Urine Ketones 1+ (Negative) H 08/22/23 20:10 Urine Blood Trace (Negative) H 08/22/23 20:10 Urine Nitrate Positive (Negative) H 08/22/23 20:10 Urine Bilirubin 2+ (Negative) H 08/22/23 20:10 Urine Urobilinogen 4+ mg/dL (Negative) H 08/22/23 20:10 Ur Leukocyte Esterase Trace (Negative) H 08/22/23 20:10 Urine RBC 5-10 /hpf (0-2) H 08/22/23 20:10 Urine WBC 5-10 /hpf (0-5) H 08/22/23 20:10 Ur Squamous Epith Cells 0-4 /hpf (0-5) H 08/22/23 20:10 Amorphous Sediment 1+ /hpf 08/22/23 20:10 Urine Bacteria 2+ /hpf (NONE) H 08/22/23 20:10 Hyaline Casts 0-4 /lpf H 08/22/23 20:10 Urine Mucus 2+ /hpf 08/22/23 20:10 Serum Ketones Negative (Negative) 08/22/23 17:25 Discharge Plan Discharge Patient Disposition: Placed in Observation Clinical Impression: Rectal mass, Acute dehydration, Acidosis, lactic Coding Level of Care Code ED Certified Control Systems Technician for Ruslan Pedraza
[2023-08-22 21:24] LABS: Lactic Acid level (Lactate) 2.8 mmol/L (0.5-2.2)
--- NOTE | 2023-08-22 21:37 | P.HP_ITS ---
Providers/Chief Complaint 2 Admitting Physician: Shahana Barnes MD Chief Complaint: WEAKNESS History of Present Illness Tito Camp is a 68 year old male who lives in an apartment, brought in by EMS covered in feces with unkept appearance. Patient is stating that for last 1 day he has been extremely lethargic and fatigued he could not change his position in the bed nor could get up. He did not experience any chest pain, shortness of breath, nausea or vomiting he has been experiencing loose stools, he has lost about 30 pounds in the last few weeks, history of intake has been poor, he eats frozen food, does not smoke or drink alcohol stating that colonoscopy was done in the past which showed precancerous polyp, never had any diagnosis of cancer as such, stating that his brother was diagnosed with stomach cancer who in his 30s, patient is stating that there is no family around him they are mostly in [place], here he is in touch with sister and [id number] stating that in case he is not able to make decision we should speak with them. As per the EMS patient was covered in feces apartment was in bad shape. Patient has not eaten well for days. Not complaining active pain. 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 Champion at [facility] she recommended no surgical intervention as changes appear to be chronic you can read detailed note by the ER physician because he contacted the colorectal surgeon before asking hospitalist to admit the patient here Considering the fact patient is not showing symptoms afebrile no leukocytosis and CT scan findings are most consistent with rectal mass I did discuss all the findings with the patient frankly, discussed staging of the cancer possible advanced age with mets with weight loss, poor functional status not been able to walk we are not sure about eligibility for chemotherapy patient would like to think about if he would agree for histopathological diagnosis He is leaning towards comfort measures in case of cardiac arrest arrest would like to make his final decision by the morning Patient stating that he has no cardiac history, no history of diabetes Review of Systems 2 Const: Reports: chills, body aches, change in weight, fatigue, malaise and night sweats Eyes: Denies: change in vision ENMT: Denies: throat pain Card: Denies: chest pain Resp: Denies: dyspnea GI: Reports: nausea and diarrhea; Denies: abdominal pain : Denies: flank pain Musc: Denies: neck pain Skin/Breast: Reports: rash Neuro: Denies: headache(s) Psych: Denies: anxiety Medications/Allergies Home Medications Medication Instructions Recorded Confirmed Last Taken Type ciprofloxacin HCl 500 mg tablet 500 mg PO BID #20 tabs 09/21/22 Unknown Rx ondansetron 4 mg disintegrating 4 mg PO Q8H PRN nausea and 09/21/22 Unknown Rx tablet vomiting #15 tabs oxycodone 5 mg tablet 5 mg PO Q4H PRN pain #10 tabs 09/21/22 Unknown Rx tamsulosin 0.4 mg capsule 0.4 mg PO DAILY #20 caps 09/21/22 Unknown Rx donepezil 5 mg tablet 5 mg PO DAILY 03/22/23 03/22/23 Unknown History simvastatin 5 mg tablet 5 mg PO DAILY 03/22/23 03/22/23 Unknown History venlafaxine 225 mg tablet,extended 225 mg PO DAILY 03/22/23 03/22/23 Unknown History release 24 hr Allergies Allergy/AdvReac Type Severity Reaction Status Date / Time No Known Allergies Allergy Verified 08/22/23 17:01 PFSH Acute 2 PFSH: Medical History Psychiatric care No significant past medical history Surgical History No significant past surgical history Vitals/I&O/Wt Last Vital Signs Temp 97.3 F L 08/22/23 16:45 Pulse 91 08/22/23 20:45 Resp 20 H 08/22/23 20:45 BP 106/73 08/22/23 20:45 Pulse Ox 99 08/22/23 20:45 O2 Del Method Room Air 08/22/23 18:45 08/22/23 08/22/23 08/22/23 06:59 14:59 22:59 Intake Total 1999 Balance 1999 Weight last 48 hrs Weight 50.349 kg Physical Exam 2 Narrative: Emaciated malnourished Unkept appearance Significant muscle mass loss Sarcopenia No abdominal pain No active emesis Able to communicate S1, S2 Hypertensive Currently on room air Foul-smelling leg secondary to fecal matter Data 08/22/23 17:25 08/22/23 17:25 A&P Assessment and plan (1) Rectal mass: (2) Acute dehydration: (3) Acidosis, lactic: (4) Constipation: (5) DIDIER (acute kidney injury): (6) Protein calorie malnutrition: (7) UTI (urinary tract infection): (8) Sepsis: (9) DVT (deep venous thrombosis): Plan 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, significant lymphadenopathy around celiac axis Concern for advanced age cancer Patient is extremely weak and lethargic He is not sure about going forward with histopathological diagnosis Considering poor functional status eligibility for chemotherapy at this point is questionable Patient lives alone in an apartment In touch with brother and [id number] He is not sure about his CODE STATUS but stating that we should make him comfortable if his heart or breathing stops He will let us know his final seen by the morning It is very overwhelming for him right now His case was discussed to correct the surgeon at [facility] who recommended nonsurgical intervention I will go ahead and put patient on IV antibiotics with clear liquid diet Most likely patient will need palliative care referral snf placement Severe constipation Avoid stimulants because of mass Will try lactulose Patient is having loose stools already Monitor for any signs of worsening DVT: Cancer related Start therapeutic Lovenox Emaciated malnourished protein calorie malnourishment: Severe Dietary consultation DIDIER related dehydration Anticipate improvement with hydration Sepsis related to UTI I will cover broadly with vancomycin and Zosyn, reason being chances of perforation considering significant rectal mass Patient is full code for now Clear liquid diet DVT prophylaxis sufficed with therapeutic Lovenox Patient stating that he never had any cardiac disease never had any stent placed he is a non-smoker Stating he has a family history Brother in his 30s secondary to stomach cancer BPH: Place Langston catheter Attestations 2 Medical Necessity Statement*: More than 2 midnights anticipated Diagnoses Rectal mass K62.89 Acute dehydration E86.0 Acidosis, lactic E87.20 Constipation K59.00 DIDIER (acute kidney injury) N17.9 Protein calorie malnutrition E46 UTI (urinary tract infection) N39.0 Sepsis A41.9 DVT (deep venous thrombosis) I82.409
[2023-08-22 23:19] LABS: Procalcitonin 0.34 ng/mL (0-0.5)
[2023-08-22] MEDS: enoxaparin 100 mg/mL Syringe 50 MG SUBCUT (23:26)
[2023-08-22] MEDS: sodium chloride 0.9% 1,000 ML 75 ML IV (23:26)
[2023-08-22 23:36] LABS: Uric Acid 7.5 mg/dL (3.4-7.0)
[2023-08-22 23:37] LABS: Creatine Phosphokinase 27 U/L (39-308)
[2023-08-22 23:58] LABS: Vitamin B12 > 2000 pg/mL (232-1245)
[2023-08-23] VITALS (8 sets, daily range): BP systolic 84–100; BP diastolic 54–66; PULSE 68–88; RESP 15–16; TEMP 36.4–36.7; O2SAT 92–99
--- NOTE | 2023-08-23 00:01 | USCV_ITS ---
Tito Camp Age: 68 Gender: M : 1955 Exam Date: 08/23/2023 08:09 Ordering Phys: Shahana Barnes MD Technologist: [place] [facility] [place]: ? mi BP: 137 / 87 HR: 79 Rhythm: Sinus Technical Quality: Very technically difficult study MEASUREMENTS (Male / Female) Normal Values DOPPLER AV Peak Velocity 117.0 cm/s LVOT Peak Velocity 74.0 cm/s MV Area PHT 4.2 cm squared Mitral E to A Ratio 1.0 TR Peak Velocity 215.0 cm/s TR Peak Gradient 18.5 mmHg TV Peak E Velocity 77.0 cm/s Right Atrial Pressure 3.0 mmHg Pulmonary Artery Systolic Pressu 21.5 mmHg PV Peak Velocity 91.0 cm/s FINDINGS Left Ventricle Possibly normal LV size and ejection fraction. Segmental wall motion analysis difficult. Only subcostal views are obtained Right Ventricle Possibly normal RV size and ejection fraction Right Atrium Possibly of normal size. Left Atrium Possibly of normal size Mitral Valve No gross abnormalities noted Aortic Valve No gross abnormalities noted Tricuspid Valve No gross abnormalities noted Pulmonic Valve Pulmonic valve not well visualized. Pericardium No pericardial effusion. Aorta Aorta not well visualized. IVC Inferior vena cava not visualized. CONCLUSIONS Possibly normal LV size and ejection fraction of around 55%. Segmental wall motion analysis is difficult because of the poor ultrasonic window Possibly normal RV size and ejection fraction There is no pericardial effusion. Technically difficult study because of the poor ultrasonic window. Only subcostal views were obtained Dr Darlin Sanchez MD [facility] (Electronically Signed) Final Date: 23 August 2023 22:43 S
[2023-08-23] MEDS: vancomycin 750 MG in sodium chloride 0.9% 250 ML 250 MG IV (00:25)
[2023-08-23 01:28] LABS: Basophils % 0.2 %; Lymphocytes # 0.7 10^3/uL (0.8-4.8); Lymphocytes % 7.7 %; Mean Corpuscular HGB Conc 31.5 g/dL (30-55); Mean Corpuscular Volume 92.2 fl (82-101); Mean Platelet Volume 10.5 fL (7.4-10.4); Monocytes # 0.5 10^3/uL (0.2-0.9); Monocytes % 5.4 %; Neutrophils # 8.25 10^3/uL (1.8-7.7); Neutrophils % 86.4 %; Nucleated Red Blood Cells % 0 %; Platelet Count 298 10^3/cmm (157-399); Red Blood Count 4.34 10^6/uL (3.85-5.65); Red Cell Distribution Width 17.1 % (12.1-15.1); White Blood Count 9.56 10^3/uL (3.29-11.43)
[2023-08-23 01:49] LABS: Lactic Sepsis W/Reflex 2.4 mmol/L (0.5-2.2)
[2023-08-23 01:50] LABS: Troponin T (5th) Once 37 ng/L (0-15)
[2023-08-23 01:51] LABS: Anion Gap 18.6 (5-19); Blood Urea Nitrogen 39 mg/dL (8-23); C Reactive Protein 18.1 mg/L (0.0-4.9); Calcium 9.2 mg/dL (8.5-10.5); Carbon Dioxide 28 mmol/L (22-29); Chloride 96 mmol/L (98-107); Creatine Phosphokinase 36 U/L (39-308); Creatinine Clr Calc Pharmacy 33.9146; Glomerular Filtration Rate 54.9 mL/min (90-130); Glucose 91 mg/dL (65-115); Lactate Dehydrogenase 201 U/L (135-225); Magnesium 2.1 mg/dL (1.7-2.3); Osmolality Calculated 295 mOsm/kg (285-295); Potassium 4.6 mmol/L (3.5-5.1); Sodium 138 mmol/L (136-145)
[2023-08-23 01:58] LABS: NT Pro B Type Natriuretic Pept 589 pg/mL (0-125)
[2023-08-23 03:12] LABS: Reflex Lactate Order REFLEX LACTIC ORDERD
[2023-08-23 04:57] LABS: Lactic Acid level (Lactate) 1.6 mmol/L (0.5-2.2)
[2023-08-23] MEDS: pantoprazole 40 mg SDV IVP ×2 (08:22→17:34)
[2023-08-23] MEDS: piperacillin-tazobactam 3.375 GM in sodium chloride 0.9% (plus) 50 ML IV ×2 (08:22→20:36)
--- NOTE | 2023-08-23 09:49 | P.PN_ITS ---
Documented by User: Leslie Smith, MELI STD 08/23/23 10:36 Subjective 2 Subjective: Patient resting in bed on room air, denies chest pain, and shortness of breath at this time. Reports he was unable to sleep last night due having frequent bowel movements. He states he has been getting more and more week over the last couple of months. He does have a sister living close by here in [place]. Medications: Reviewed: Yes Vitals/I&O/Wt Last Vital Signs Temp 97.7 F 08/23/23 08:27 Pulse 80 08/23/23 08:27 Resp 16 08/23/23 08:27 BP 90/64 08/23/23 08:27 Pulse Ox 98 08/23/23 08:27 O2 Del Method Room Air 08/23/23 08:27 08/22/23 08/23/23 08/23/23 22:59 06:59 14:59 Intake Total 2049 / 2049 1450 / 3500 410 / 410 Output Total 300 / 300 Balance 2049 1150 / 3200 410 / 410 Weight last 48 hrs Weight 99 lb 2 oz Weight 97 lb 3.2 oz Weight 111 lb Physical Exam 2 Narrative: General Exam: Patient appears malnourished. Noted to be alert, no apparent distress. Neck supple, no lymphadenopathy. Resp: on room air, lungs sounds diminished to auscultation, denies SOB with excertion Cardio: no JVD, regular rate, regular rhythm GI: nontender, normoactive bowel sounds Skin: no rash noted. 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 Patient reports constipation, and having several loose bowel movements. Continue lactulose. Consult surgery for possible biopsy of mass. (2) UTI (urinary tract infection): Continue Vancomycin, Zoysn. Langston catheter in place. Urine culture pending. (3) Sepsis: Continue board spectrum antibiotics, consult surgery. Blood culture pending. Urine culture pending. Echo pending (4) Protein calorie malnutrition: Dietary consultation. Ensure as dietary supplement Consult OT, PT. (5) DVT (deep venous thrombosis): Continue with therapeutic Lovenox. (6) DIDIER (acute kidney injury): Likely due to dehydration, slight improvement noted this am. Langston catherter in place, monitor I&Os. BMP in the am. Plan Clear liquid Coding Level of Care Code 29836 Diagnoses Rectal mass K62.89 UTI (urinary tract infection) N39.0 Sepsis A41.9 Protein calorie malnutrition E46 DVT (deep venous thrombosis) I82.409 DIDIER (acute kidney injury) N17.9 Time Spent (min) 31 Documented by User: Adalberto Herman MD 08/23/23 12:51 Subjective 2 Subjective: Patient resting in bed on room air, denies chest pain, and shortness of breath at this time. Reports he was unable to sleep last night due having frequent bowel movements. He states he has been getting more and more week over the last couple of months. He does have a sister living close by here in [place]. History and physical reviewed from admission. Physical Exam 2 Narrative: General Exam: Patient appears malnourished. Noted to be alert, no apparent distress. Neck supple, no lymphadenopathy. Resp: on room air, lungs sounds diminished to auscultation, denies SOB with excertion Cardio: no JVD, regular rate, regular rhythm GI: nontender, normoactive bowel sounds Skin: no rash noted. Rectal performed. Significant amount of liquid stool is noted. Rectal area does feel nodular on exam. This was most significant posteriorly. No extruding mass was noted. Urinary Catheter Management: Coude: Cath Placed During This Visit: yes Data 08/23/23 00:56 08/23/23 00:56 A&P Assessment and plan (1) Rectal mass: Rectal mass with possible mets to adrenal gland, significant lymphadenopathy around celiac axis. Patient reports constipation, and having several loose bowel movements. Continue lactulose for constipation May need endoscopy for biopsy. Discussing with family. Concern was also for possible abscess. Currently on vancomycin and Zosyn. (2) UTI (urinary tract infection): Continue Zoysn. Await culture Langston catheter in place. Urine culture pending. (3) Sepsis: Continue board spectrum antibiotics Blood culture pending. Urine culture pending. Echo pending (4) Protein calorie malnutrition: Dietary consultation. Ensure as dietary supplement Consult OT, PT. Associated with global weakness (5) DVT (deep venous thrombosis): Continue with therapeutic Lovenox. As potential for biopsy in the near future, hold off on any oral anticoagulation (6) DIDIER (acute kidney injury): Plan History of short-term memory loss. I see that he is on donepezil. Will go ahead and get a TSH, CT head noncontrast for further workup of underlying dementia, especially with concern of underlying malignancy. Diet will be clear liquid Attestations 2 Medical Necessity Statement*: He has continued hospital stay for evaluation of possible rectal abscess, mass, and continue IV antibiotics Diagnoses Rectal mass K62.89 UTI (urinary tract infection) N39.0 Sepsis A41.9 Protein calorie malnutrition E46 DVT (deep venous thrombosis) I82.409 DIDIER (acute kidney injury) N17.9 Time Spent (min) 31
--- NOTE | 2023-08-23 09:57 | PC.CHAP ---
Pastoral Care Encounter/Spiritual Assessment Type of Contact [] Declined tree shear operator visit [] Patient/Family/Request visit [] Outpatient visit [] Follow-up visit [] Physician referral [] Code/Alert [x] Routine visit [] Staff referral [] Actively dying [] Patient sleeping [] Family support [] [] Out of room [] Palliative care [] [] Receiving care in room [] Pre-surgical visit [] Trauma [] Long length of stay [] ICU visit [] Other: Relational/Emotional Strength [] Patient feels connected with others/family/visitors/staff [] Distress [] Loneliness/isolation [] Abandonment Spirituality of Patient [x] Person of Odalis [] Attends Gnosticism of their Odalis [x] Believes in Prayer [] Reads Bible or Latter Day materials [] There are Spiritual issues to be addressed Dance Entertainer Interventions [x] Prayer [x] Active listening [] Non-anxious presence [] Spiritual/emotional support [] Crisis/trauma care [] Spiritual counseling [] Bereavement support [] Provided bereavement packet [] Provided Bible/devotional materials [] Provided toy/stuffed animal, coloring book to patient or family member [] Provided Communion [] Anointing/[place] [] Salvation [] Completed spiritual assessment [] Other: Impact on Illness or Injury [] Angry [] Fearful [] Anxious [] Often cries [] Exhaustion [] Unable to work [] Unable to attend moravian [] Unable to walk/stand [] Unable to read [] Unable to drive [] Unable to eat/drink [] Unable to sleep [] Unable to be with family [] Patient intubated [] Other: Summary Time spent with patient 5min
[2023-08-23] MEDS: enoxaparin 100 mg/mL Syringe 50 MG SUBCUT ×2 (10:42→22:50)
[2023-08-23] MEDS: sodium chloride 0.9% 1,000 ML 75 ML IV ×2 (12:00→23:33)
--- NOTE | 2023-08-23 12:38 | CT_ITS ---
WS: [id number] CT HEAD TECHNIQUE: Noncontrast CT of the head obtained from the skullbase to the vertex. CLINICAL INFORMATION: confusion COMPARISON: None. DLP: 1034.[address] scans at [facility] use at least one of these dose optimization techniques: automated e xposure control; mA and/or kV adjustment per patient size (includes targeted exams where dose is matc hed to clinical indication); or iterative reconstruction. FINDINGS: No evidence of intracranial hemorrhage or mass effect. Ventricular system and basal cisterns are diaz nt. Moderate small vessel changes with moderate parenchymal volume loss. Intracranial vascular calcif ication. No extra-axial fluid collections. No evidence of mass or mass effect. Paranasal sinuses and mastoid air cells are well aerated. .Normal visualized soft tissues. IMPRESSION: 1. No evidence of intracranial hemorrhage or mass effect. 2. No acute intracranial findings.
[2023-08-23 13:38] LABS: Thyroid Stimulating Hormone 2.81 uIU/mL (0.27-4.20)
[2023-08-24] VITALS (8 sets, daily range): BP systolic 84–143; BP diastolic 50–81; PULSE 74–104; RESP 14–18; TEMP 35.5–36.8; O2SAT 87–98; BMI 16.5
[2023-08-24 05:52] LABS: Basophils % 0.3 %; Eosinophils % 0.4 %; Hematocrit 31.4 % (37-53); Lymphocytes # 0.9 10^3/uL (0.8-4.8); Lymphocytes % 12.1 %; Mean Corpuscular HGB Conc 30.6 g/dL (30-55); Mean Corpuscular Volume 94.9 fl (82-101); Mean Platelet Volume 10.7 fL (7.4-10.4); Monocytes # 0.5 10^3/uL (0.2-0.9); Monocytes % 7.2 %; Neutrophils # 5.66 10^3/uL (1.8-7.7); Neutrophils % 79.7 %; Nucleated Red Blood Cells % 0 %; Platelet Count 193 10^3/cmm (157-399); Red Blood Count 3.31 10^6/uL (3.85-5.65); Red Cell Distribution Width 17.2 % (12.1-15.1)
[2023-08-24 06:40] LABS: Anion Gap 10.6 (5-19); Blood Urea Nitrogen 23 mg/dL (8-23); Calcium 7.7 mg/dL (8.5-10.5); Carbon Dioxide 24 mmol/L (22-29); Chloride 104 mmol/L (98-107); Glomerular Filtration Rate 74.3 mL/min (90-130); Glucose 83 mg/dL (65-115); Osmolality Calculated 283 mOsm/kg (285-295); Potassium 3.6 mmol/L (3.5-5.1); Sodium 135 mmol/L (136-145)
--- NOTE | 2023-08-24 07:34 | PC.SOCIAL ---
Late Entry: IMM Update 08/23/23 @ 0935: IMM updated and reviewed w/ patient. Copy provided and copy dated, initialed and placed in chart.
--- NOTE | 2023-08-24 08:27 | P.PN_ITS ---
Subjective 2 Subjective: Tito reports he is doing okay. Still having liquid stool. He does not remember much of our conversation yesterday, but still can be rather insightful in our conversation today. When told that we were talking about rectal cancer he does not seem surprised. Medications: Reviewed: Yes Vitals/I&O/Wt Last Vital Signs Temp 98.3 F 08/24/23 04:00 Pulse 87 08/24/23 04:00 Resp 14 08/24/23 04:00 BP 86/54 08/24/23 04:00 Pulse Ox 94 08/24/23 04:00 O2 Del Method Room Air 08/24/23 04:00 08/23/23 08/24/23 08/24/23 22:59 06:59 14:59 Intake Total 770 / 2602.5 866.25 / 3468.75 Output Total 250 / 550 500 / 1050 Balance 520 / 2052.5 366.25 / 2418.75 Weight last 48 hrs Weight 50.712 kg Weight 44.962 kg Weight 44.089 kg Weight 50.349 kg Physical Exam 2 Narrative: General Exam: No distress Neck supple, no lymphadenopathy. Resp: on room air, lungs sounds diminished to auscultation, denies SOB with excertion Cardio: no JVD, regular rate, regular rhythm GI: nontender, normoactive bowel sounds Skin: no rash noted. Urinary Catheter Management: Coude: Cath Placed During This Visit: yes Reason for Continuing Indwelling Catheter: Other Urinary Catheter Date of Insertion: 08/22/23 Urinary Catheter Time of Insertion: 23:00 Data 08/24/23 05:15 08/24/23 05:15 Micro: Microbiology 08/23/23 00:56 Blood Culture - Preliminary Blood NEGATIVE TO DATE 08/23/23 00:56 Blood Culture - Preliminary Blood NEGATIVE TO DATE A&P Assessment and plan (1) Rectal mass: Rectal mass with possible metastatic disease, significant lymphadenopathy around celiac axis. Patient reports constipation, and having several loose bowel movements. May need endoscopy for biopsy. Discussing with family. Concern was also for possible abscess. Currently on vancomycin and Zosyn. Surgery consultation (2) UTI (urinary tract infection): Continue Zoysn. Await culture Langston catheter in place. Urine culture pending. (3) Sepsis: Continue board spectrum antibiotics Blood culture pending. Urine culture pending. Echo grossly normal EF (4) Protein calorie malnutrition: Dietary consultation. Ensure as dietary supplement Consult OT, PT. Associated with global weakness (5) DVT (deep venous thrombosis): Continue with therapeutic Lovenox. As potential for biopsy in the near future, hold off on any oral anticoagulation (6) DIDIER (acute kidney injury): Likely due to dehydration, improvement noted. Langston catherter in place, monitor I&Os. CMP in the am. Plan History of short-term memory loss. I see that he is on donepezil. TSH, CT head okay. Anemia. Continue to monitor. CBC in the morning. No evidence of active bleeding Diet will be clear liquid, pending surgical evaluation Borderline low blood pressures. Check cortisol level. Add midodrine. Full code currently Hold Lovenox as has DVT Attestations 2 Medical Necessity Statement*: Needs continued hospital stay for IV antibiotics for abscess, evaluation of rectal mass Diagnoses Rectal mass K62.89 UTI (urinary tract infection) N39.0 Sepsis A41.9 Protein calorie malnutrition E46 DVT (deep venous thrombosis) I82.409 DIDIER (acute kidney injury) N17.9 Time Spent (min) 24
[2023-08-24 08:36] LABS: Cortisol Random 20.83 ug/dL (2.47-19.5)
[2023-08-24] MEDS: pantoprazole 40 mg SDV IVP ×2 (08:55→18:13)
[2023-08-24] MEDS: atorvastatin 40 mg Tablet PO (08:55)
[2023-08-24] MEDS: piperacillin-tazobactam 3.375 GM in sodium chloride 0.9% (plus) 50 ML IV ×2 (08:55→19:59)
[2023-08-24] MEDS: midodrine 5 mg TABLET PO ×3 (08:55→19:59)
[2023-08-24] MEDS: donepezil 5 MG Tablet PO (08:55)
[2023-08-24] MEDS: venlafaxine ER (24HR) 75 mg Capsule 225 MG PO (08:55)
[2023-08-24 09:19] LABS: Carcinoembryonic Antigen 29.4 ng/mL (0.0-4.7)
[2023-08-24] MEDS: vancomycin 1,000 MG in sodium chloride 0.9% 250 ML 250 MG IV (11:03)
[2023-08-24] MEDS: enoxaparin 100 mg/mL Syringe 50 MG SUBCUT ×2 (11:05→22:45)
--- NOTE | 2023-08-24 12:57 | PM.CONSULT ---
Providers/Reason For Consult Consulting Physician/Specialty*: General surgery Reason for Consult*: Pathological diagnosis for rectal cancer Attending Physician: Adalberto Herman MD History of Present Illness History of Present Illness Tito Camp is a 68 year old male who presented to the hospital with a partially obstructing rectal mass. He also was noted to have DVT and has been started on anticoagulation. Patient was evaluated in the emergency department and discussed with one of our general surgeons who determined that the patient should have Been transferred for management by colorectal. After discussion of the case with the colorectal doctor in [place] they determined this to be a very advanced cancer and recommended palliative management, therefore patient was admitted to our hospital. Patient appears to be stable no significant complaints has been Avid in bowel movements and passing gas. Initial CT scan of the abdomen pelvis show evidence of the rectal mass and there is in addition a perirectal abscess that is likely related to primary pathology. I have been consulted to evaluate for the possibility of biopsy of the lesion. Review of Systems General: Reports: 10 or more systems reviewed and unremarkable except in HPI and below Medications/Allergies Home Medications Medication Instructions Recorded Confirmed Last Taken Type donepezil 5 mg tablet 5 mg PO DAILY 03/22/23 08/23/23 Unknown History simvastatin 5 mg tablet 5 mg PO DAILY 03/22/23 08/23/23 Unknown History venlafaxine 225 mg tablet,extended 225 mg PO DAILY 03/22/23 08/23/23 Unknown History release 24 hr aspirin 81 mg tablet,delayed 81 mg PO DAILY 08/23/23 08/23/23 Unknown History release Allergies Allergy/AdvReac Type Severity Reaction Status Date / Time No Known Allergies Allergy Verified 08/22/23 17:01 Current Medications Generic Name Dose Route Start Last Admin Trade Name Freq PRN Reason Stop Dose Admin Atorvastatin Calcium 40 mg 08/24/23 09:00 08/24/23 08:55 Atorvastatin 40 Mg Tablet PO 40 mg DAILY ABHI Administration Donepezil HCl 5 mg 08/24/23 09:00 08/24/23 08:55 Donepezil 5 Mg Tablet PO 5 mg DAILY ABHI Administration Enoxaparin Sodium 50 mg 08/22/23 23:08 08/24/23 11:05 Enoxaparin 100 Mg/Ml Syringe 1 mg/kg (50 mg) 50 mg SUBCUT Administration Q12H [facility] Sodium Chloride 1,000 mls @ 75 mls/hr 08/22/23 23:08 08/24/23 12:56 Sodium Chloride 0.9% IV Infused .[id number] ABHI Infusion Piperacillin Sod/Tazobactam 50 mls @ 100 mls/hr 08/23/23 08:00 08/24/23 09:55 Sod 3.375 gm/ Sodium Chloride IV Infused Q12H ABHI Infusion Protocol Vancomycin HCl 1,000 mg/ 250 mls @ 250 mls/hr 08/24/23 10:00 08/24/23 11:03 Sodium Chloride IV 250 mls/hr Q24H ABHI Administration Midodrine 5 mg 08/24/23 09:00 08/24/23 08:55 Midodrine 5 Mg Tablet PO 5 mg TID ABHI Administration Pantoprazole Sodium 40 mg 08/23/23 09:00 08/24/23 08:55 Pantoprazole 40 Mg Sdv IVP 40 mg BID ABHI Administration Venlafaxine HCl 225 mg 08/24/23 09:00 08/24/23 08:55 Venlafaxine Er (24hr) 75 Mg Capsule PO 225 mg DAILY ABHI Administration PFSH Acute PFSH: Medical History Psychiatric care No significant past medical history Surgical History No significant past surgical history Vitals/I&O/Wt Last Vital Signs Temp 97.5 F L 08/24/23 09:46 Pulse 90 08/24/23 09:46 Resp 15 08/24/23 09:46 BP 84/50 08/24/23 09:46 Pulse Ox 90 08/24/23 09:46 O2 Del Method Room Air 08/24/23 09:05 08/23/23 08/24/23 08/24/23 22:59 06:59 14:59 Intake Total 770 / 2602.5 866.25 / 3468.75 1000.000 / 1000.000 Output Total 250 / 550 500 / 1050 Balance 520 / 2052.5 366.25 / 2418.75 1000.000 / 1000.000 Weight last 48 hrs Weight 111 lb 12.8 oz Weight 99 lb 2 oz Weight 97 lb 3.2 oz Weight 111 lb Physical Exam Narrative: Patient is alert and oriented x 1 ? Abdomen is soft, nontender, nondistended, ? Rectal examination was done, there was significant stool in the diaper, on RUCHI there is a palpable mass almost at the level of the anal margin the mass is tender to palpation. Urinary Catheter Management: Coude: Cath Placed During This Visit: yes Reason for Continuing Indwelling Catheter: Other Urinary Catheter Date of Insertion: 08/22/23 Urinary Catheter Time of Insertion: 23:00 Data 08/24/23 05:15 08/24/23 05:15 Micro: Microbiology 08/22/23 20:10 Urine Culture - Final Urine,Clean Catch 08/23/23 00:56 Blood Culture - Preliminary Blood NEGATIVE TO DATE 08/23/23 00:56 Blood Culture - Preliminary Blood NEGATIVE TO DATE A&P Assessment and plan (1) Rectal mass: After complete history, physical examination and review of all available clinical data the following is my assessment. Patient does have a partially obstructing rectal mass, patient will most likely benefit from chemoradiation. In order to guide therapy I have been requested to obtain a tissue sample for pathology. I have discussed with the patient, he agrees to proceed with a proctoscopy for biopsy of the rectal mass. Since patient is receiving therapeutic Lovenox anticoagulation for DVT my recommendation will be to hold anticoagulation for full 24 hours before I can proceed with the endoscopy and biopsy, after the biopsies taken it would be better to wait at least 12 hours before initiated Lovenox. I have discussed all the risk and benefits of the proctoscopy with the patient including the risk of perforation of the rectum that can lead to sepsis and even . No need for full bowel preparation. I will order some stool softeners and laxatives for tomorrow and he can stay on clear liquid diet until the moment of the endoscopy. -Proctoscopy with biopsy on morning -Clear liquid diet tomorrow -Please hold anticoagulation for 24 hours before the procedure -Indicates that continues need of anticoagulation patient can be switched to heparin drip which can be held at midnight before the procedure. Coding Level of Care Code 07686 Diagnoses Rectal mass K62.89
--- NOTE | 2023-08-24 16:44 | PC.NURSE ---
This nurse spoke with patient at bedside and patient gave verbal consent to allow the care team to contact Afia Mcdonnell (patients sister). Afia Mcdonnell -
[2023-08-25 04:00] VITALS: BP 111/66; PULSE 64; RESP 16; TEMP 36.3; O2SAT 97
[2023-08-25 06:13] LABS: Basophils % 0.5 %; Eosinophils % 0.3 %; Hematocrit 35.5 % (37-53); Lymphocytes # 0.8 10^3/uL (0.8-4.8); Mean Corpuscular HGB Conc 32.1 g/dL (30-55); Mean Corpuscular Hemoglobin 29.6 pg (27-33); Mean Corpuscular Volume 92.2 fl (82-101); Mean Platelet Volume 10.7 fL (7.4-10.4); Monocytes # 0.5 10^3/uL (0.2-0.9); Monocytes % 8.1 %; Neutrophils # 4.97 10^3/uL (1.8-7.7); Neutrophils % 78.8 %; Nucleated Red Blood Cells % 0 %; Platelet Count 232 10^3/cmm (157-399); Red Blood Count 3.85 10^6/uL (3.85-5.65); Red Cell Distribution Width 17.5 % (12.1-15.1); White Blood Count 6.31 10^3/uL (3.29-11.43)
[2023-08-25 06:46] LABS: Alanine Aminotransferase 6 U/L (0-41); Albumin Level 2.5 g/dL (3.5-5.2); Alkaline Phosphatase 109 U/L (40-130); Anion Gap 8.9 (5-19); Aspartate Amino Transferase 11 U/L (0-40); Blood Urea Nitrogen 17 mg/dL (8-23); Calcium 7.9 mg/dL (8.5-10.5); Carbon Dioxide 24 mmol/L (22-29); Chloride 104 mmol/L (98-107); Creatinine Clr Calc Pharmacy 60.3278; Globulin 2.3 g/dL (1.3-4.6); Glomerular Filtration Rate 83.9 mL/min (90-130); Glucose 95 mg/dL (65-115); Osmolality Calculated 277 mOsm/kg (285-295); Potassium 3.9 mmol/L (3.5-5.1); Sodium 133 mmol/L (136-145); Total Bilirubin 1.4 mg/dL (0.15-1.2); Total Protein 4.8 g/dL (6.6-8.7)
[2023-08-25] MEDS: magnesium citrate Btl 296 mL 150 ML PO (06:55)
--- NOTE | 2023-08-25 07:45 | CTR_ITS ---
PROCEDURE INFORMATION: Exam: CT Chest With Contrast; Diagnostic Exam date and time: 08/25/2023 8:29 AM Age: 68 years old Clinical indication: Other: Back pain; Additional info: Rectal mass TECHNIQUE: Imaging protocol: Diagnostic computed tomography of the chest with contrast. Radiation optimization: All CT scans at this facility use at least one of these dose optimization techniques: automated exposure control; mA and/or kV adjustment per patient size (includes targeted exams where dose is matched to clinical indication); or iterative reconstruction. Contrast material: OMNI 350; Contrast volume: 75 ml; Contrast route: INTRAVENOUS (IV); COMPARISON: CT abdomen pelvis w con* [id number] 08/22/2023 6:37 PM RADIATION DOSE METRICS: Total DLP (mGy-cm): 250.94 FINDINGS: Lungs: The lungs are hyperinflated with emphysematous change. There is a small area of interstitial thickening in the anterior aspect of the right upper lobe. Pleural spaces: There are small bilateral pleural effusions. Heart: Unremarkable. No cardiomegaly. No pericardial effusion. Coronary arteries: Coronary artery calcification is present. Lymph nodes: Unremarkable. No enlarged lymph nodes. Vasculature: Unremarkable. No aortic aneurysm. Intraperitoneal space: There is upper abdominal ascites and edema. A left adrenal nodule is unchanged from the prior study measuring 23 x 13 mm. Bones/joints: The bones are osteopenic with degenerative change. Soft tissues: Unremarkable. CT/CT chest w con* [id number] IMPRESSION: Bilateral pleural effusions with adjacent atelectasis. Underlying COPD. There is subpleural interstitial thickening in the anterior aspect of the right upper lobe, indeterminate. Follow-up in [address] of the thorax is suggested. Fleischner society criteria do not apply in a patient with suspected malignancy. Left adrenal nodule. COMMENTS: The presence of pulmonary emphysema on CT is an independent risk factor for lung cancer. In the absence of a history or active diagnosis of lung cancer, it is recommended that this patient with emphysema be evaluated for enrollment in a low dose CT lung cancer screening program.
[2023-08-25 08:00] VITALS: BP 124/82; PULSE 67; RESP 16; TEMP 36.4; O2SAT 95
[2023-08-25 08:23] VITALS: PULSE 82; RESP 16; O2SAT 93
[2023-08-25] MEDS: iohexol 350 mg/mL 500 mL Btl (per mL) IV (08:46)
[2023-08-25] MEDS: piperacillin-tazobactam 3.375 GM in sodium chloride 0.9% (plus) 50 ML IV ×2 (08:53→20:37)
[2023-08-25] MEDS: pantoprazole 40 mg SDV IVP ×2 (08:54→17:26)
[2023-08-25] MEDS: midodrine 5 mg TABLET PO ×3 (08:54→20:37)
[2023-08-25] MEDS: atorvastatin 40 mg Tablet PO (08:54)
[2023-08-25] MEDS: venlafaxine ER (24HR) 75 mg Capsule 225 MG PO (08:54)
[2023-08-25] MEDS: donepezil 5 MG Tablet PO (08:54)
[2023-08-25] MEDS: heparin 5,000 unit/mL INJ 1 mL IV (09:12)
[2023-08-25] MEDS: heparin drip 25,000 UNIT/500 ML PREMIX 15 UNIT IV (09:13)
--- NOTE | 2023-08-25 10:11 | PC.SOCIAL ---
IMM Update pg 2 of IMM updated and reviewed w/ patient. Copy provided and copy dated, initialed and placed in chart.
--- NOTE | 2023-08-25 10:17 | PM.PN ---
Documented by User: Leslie Smith, MELI STDNT 08/25/23 10:36 Subjective Subjective: Patient resting in bed this morning on room air. Patient complains of being worn out states he just walked to the bathroom with the assistance of walker and nursing staff. Patient denies chest pain, shortness of breath, nausea. Medications: Reviewed: Yes Vitals/I&O/Wt Last Vital Signs Temp 97.5 F L 08/25/23 08:00 Pulse 82 08/25/23 08:23 Resp 16 08/25/23 08:23 BP 124/82 08/25/23 08:00 Pulse Ox 93 08/25/23 08:23 O2 Del Method Room Air 08/25/23 08:23 08/24/23 08/25/23 08/25/23 22:59 06:59 14:59 Intake Total 650 / 1900.000 120 / 2020.000 0 / 0 Output Total 550 / 550 Balance 650 / 1900.000 -430 / 1470.000 0 / 0 Weight last 48 hrs Weight 119 lb 11.2 oz Weight 111 lb 12.8 oz Physical Exam Narrative: General Exam: No distress, patient alert and oriented x 3. Intermittent confusion. Neck supple, no lymphadenopathy. Resp: on room air, lungs sounds clear to auscultation. Denies cough. Cardio: no JVD, regular rate, regular rhythm. GI: nontender, normoactive bowel sounds Skin: no rash noted. Urinary Catheter Management: Coude: Cath Placed During This Visit: yes Reason for Continuing Indwelling Catheter: Other Urinary Catheter Date of Insertion: 08/22/23 Urinary Catheter Time of Insertion: 23:00 Data 08/25/23 05:21 08/25/23 05:21 Micro: Microbiology 08/22/23 20:10 Urine Culture - Final Urine,Clean Catch A&P Assessment and plan (1) Rectal mass: Rectal mass with possible metastatic disease, significant lymphadenopathy around celiac axis. Patient continues to report constipation, and having several loose bowel movements. Rectal mass biopsy scheduled for tomorrow morning. Discussing with family. Concern was also for possible abscess. Currently on vancomycin and Zosyn. Surgery consultation CT of chest this a.m. 08/24/23 demonstrated a subpleural interstitial thickening in the anterior aspect of the right upper lobe, indeterminate and a left adrenal nodule. and bilateral pleural effusions with adjacent atelectasis. (2) UTI (urinary tract infection): Continue Zoysn. Langston catheter in place. Urine culture pending. (3) Sepsis: Continue board spectrum antibiotics of Zosyn. Blood culture pending. Urine culture pending. Echo grossly normal EF (4) Protein calorie malnutrition: Dietary consultation. Ensure as dietary supplement. Currently on clear liquid diet for biopsy of rectal mass tomorrow morning. N.p.o. order for midnight. Consult OT, PT. Associated with global weakness (5) DVT (deep venous thrombosis): Lovenox held due to biopsy of rectal mass scheduled for tomorrow morning. Patient placed on heparin drip, will discontinue at midnight. As potential for biopsy in the near future, hold off on any oral anticoagulation (6) DIDIER (acute kidney injury): Likely due to dehydration, improvement noted. Langston catherter in place, monitor I&Os. CMP in the am. Plan History of short-term memory loss. I see that he is on donepezil. TSH normal at 2.81 on 08/23/23 Anemia. Continue to monitor. CBC in the morning. No evidence of active bleeding Diet will be n.p.o. for rectal mass biopsy tomorrow. Borderline low blood pressures. Cortisol level 20.8 on 08/24/23. Continue midodrine. Full code currently Hold Lovenox as has DVT, heparin drip ordered will discontinue at midnight. Restart DVT prophylaxis post rectal biopsy. Coding Level of Care Code 07911 Diagnoses Rectal mass K62.89 UTI (urinary tract infection) N39.0 Sepsis A41.9 Protein calorie malnutrition E46 DVT (deep venous thrombosis) I82.409 DIDIER (acute kidney injury) N17.9 Time Spent (min) 24 Documented by User: Adalberto Herman MD 08/25/23 10:52 Physical Exam Urinary Catheter Management: Coude: Cath Placed During This Visit: yes Data 08/25/23 05:21 08/25/23 05:21 A&P Assessment and plan (1) Rectal mass: Rectal mass with possible metastatic disease, significant lymphadenopathy around celiac axis. Patient continues to report constipation, and having several loose bowel movements. Rectal mass biopsy scheduled for tomorrow morning. Discussing with family. Concern was also for possible abscess. Currently on vancomycin and Zosyn. Surgery consultation appreciated CEA was elevated CT of chest this a.m. 08/24/23 demonstrated a subpleural interstitial thickening in the anterior aspect of the right upper lobe, indeterminate and a left adrenal nodule. and bilateral pleural effusions with adjacent atelectasis. (2) UTI (urinary tract infection): Urine culture negative (3) Sepsis: Continue board spectrum antibiotics of Zosyn, vancomycin. Blood culture pending. Urine culture pending. Echo grossly normal EF (4) Protein calorie malnutrition: (5) DVT (deep venous thrombosis): (6) DIDIER (acute kidney injury): Plan History of short-term memory loss. I see that he is on donepezil. TSH normal at 2.81 on 08/23/23 Anemia. Continue to monitor. CBC in the morning. No evidence of active bleeding Diet will be n.p.o. for rectal mass biopsy tomorrow. Borderline low blood pressures. Cortisol level 20.8 on 08/24/23. Continue midodrine. Appears to be improved with midodrine. Full code currently Hold Lovenox as has DVT, heparin drip ordered will discontinue at midnight. Restart DVT prophylaxis post rectal biopsy. Attestations Medical Necessity Statement*: Needs continued hospitalization for evaluation of rectal mass, continuation of IV antibiotics Diagnoses Rectal mass K62.89 UTI (urinary tract infection) N39.0 Sepsis A41.9 Protein calorie malnutrition E46 DVT (deep venous thrombosis) I82.409 DIDIER (acute kidney injury) N17.9 Time Spent (min) 24
[2023-08-25] MEDS: vancomycin 1,000 MG in sodium chloride 0.9% 250 ML 250 MG IV (11:28)
[2023-08-25 12:00] VITALS: BP 98/65; PULSE 80; RESP 16; TEMP 36.3; O2SAT 98
[2023-08-25 16:00] VITALS: BP 108/74; PULSE 74; RESP 17; TEMP 36.3; O2SAT 99
--- NOTE | 2023-08-25 17:24 | PC.NURSE ---
Dr Herman advised that Pt. urine output for the shift only 100ml. Awaiting response.
[2023-08-25] MEDS: sodium chloride 0.9% 1,000 ML 75 ML IV ×2 (18:17→18:20)
[2023-08-25 18:58] LABS: Partial Thromboplastin Time 93.2 SECONDS (23.9-36.7)
[2023-08-25 20:00] VITALS: BP 112/72; PULSE 73; RESP 16; TEMP 36.4; O2SAT 97
[2023-08-26] VITALS (17 sets, daily range): BP systolic 82–138; BP diastolic 57–95; PULSE 66–109; RESP 14–20; TEMP 36.2–37.1; O2SAT 94–100
[2023-08-26 01:06] LABS: Basophils % 0.3 %; Hematocrit 38.5 % (37-53); Lymphocytes # 0.5 10^3/uL (0.8-4.8); Lymphocytes % 7.3 %; Mean Corpuscular HGB Conc 31.7 g/dL (30-55); Mean Corpuscular Hemoglobin 29.3 pg (27-33); Mean Corpuscular Volume 92.5 fl (82-101); Mean Platelet Volume 10.6 fL (7.4-10.4); Monocytes # 0.4 10^3/uL (0.2-0.9); Monocytes % 5.6 %; Neutrophils # 6.31 10^3/uL (1.8-7.7); Neutrophils % 86.7 %; Nucleated Red Blood Cells % 0 %; Platelet Count 269 10^3/cmm (157-399); Red Blood Count 4.16 10^6/uL (3.85-5.65); Red Cell Distribution Width 17.6 % (12.1-15.1); White Blood Count 7.28 10^3/uL (3.29-11.43)
[2023-08-26 01:28] LABS: Alanine Aminotransferase 7 U/L (0-41); Albumin Level 2.4 g/dL (3.5-5.2); Alkaline Phosphatase 127 U/L (40-130); Anion Gap 12.5 (5-19); Aspartate Amino Transferase 9 U/L (0-40); Blood Urea Nitrogen 16 mg/dL (8-23); Calcium 7.7 mg/dL (8.5-10.5); Carbon Dioxide 21 mmol/L (22-29); Chloride 101 mmol/L (98-107); Creatinine Clr Calc Pharmacy 67.8688; Globulin 2.6 g/dL (1.3-4.6); Glomerular Filtration Rate 112.1 mL/min (90-130); Glucose 112 mg/dL (65-115); Osmolality Calculated 274 mOsm/kg (285-295); Potassium 3.5 mmol/L (3.5-5.1); Sodium 131 mmol/L (136-145); Total Bilirubin 1.5 mg/dL (0.15-1.2)
--- NOTE | 2023-08-26 02:30 | PC.NURSE ---
Patient did not have any output in his sanz bag throughout the night and had urine in his brief. Catheter balloon was still inflated. Catheter was removed and new 12 fr coude was placed. New catheter is patent and draining.
--- NOTE | 2023-08-26 06:30 | W.PM.OPSFHP ---
Same Day Surgery H&P Indication for Procedure/HPI DATE OF PROCEDURE: August 26, 2023 CHIEF COMPLAINT/INDICATIONFOR SURGICAL PROCEDURE: rectal mass PREOP DIAGNOSIS: rectal mass PLANNED PROCEDURE: Operation Date: 08/26/23 11:35 Proposed Procedures p Proctoscopy(Not Applicable) - Eric Parikh MD Medications/Allergies* Home Medications Medication Instructions Recorded Confirmed Type donepezil 5 mg tablet 5 mg PO DAILY 03/22/23 08/23/23 History simvastatin 5 mg tablet 5 mg PO DAILY 03/22/23 08/23/23 History venlafaxine 225 mg tablet,extended 225 mg PO DAILY 03/22/23 08/23/23 History release 24 hr aspirin 81 mg tablet,delayed 81 mg PO DAILY 08/23/23 08/23/23 History release Allergies/Adverse Reactions Allergy/AdvReac Type Severity Reaction Status Date / Time No Known Allergies Allergy Verified 08/22/23 17:01 Current Medications: Generic Name Dose Route Start Last Admin Trade Name Freq PRN Reason Stop Dose Admin Atorvastatin Calcium 40 mg 08/24/23 09:00 08/25/23 08:54 Atorvastatin 40 Mg Tablet PO 40 mg DAILY ABHI Administration Donepezil HCl 5 mg 08/24/23 09:00 08/25/23 08:54 Donepezil 5 Mg Tablet PO 5 mg DAILY ABHI Administration Heparin Sodium (Porcine) 0 unit 08/25/23 07:43 08/25/23 09:12 Heparin 5,000 Unit/Ml Inj 1 Ml IV 2,600 unit PRN PRN Administration Heparin weight-base protocol Protocol Piperacillin Sod/Tazobactam 50 mls @ 100 mls/hr 08/23/23 08:00 08/25/23 21:16 Sod 3.375 gm/ Sodium Chloride IV Infused Q12H ABHI Infusion Protocol Vancomycin HCl 1,000 mg/ 250 mls @ 250 mls/hr 08/24/23 10:00 08/25/23 12:54 Sodium Chloride IV Infused Q24H ABHI Infusion Sodium Chloride 1,000 mls @ 75 mls/hr 08/26/23 07:00 08/25/23 18:17 Sodium Chloride 0.9% IV 75 mls/hr .[id number] ABHI Administration Heparin Sodium/Sodium Chloride 25,000 unit in 500 mls @ 0 mls/hr 08/25/23 07:45 08/26/23 00:24 Heparin Drip IV 0 unit/kg/hr .Q0M ABHI 0 mls/hr Titration Protocol Per Protocol Sodium Chloride 1,000 mls @ 75 mls/hr 08/25/23 18:15 08/25/23 18:20 Sodium Chloride 0.9% IV 75 mls/hr .[id number] ABHI Administration Midodrine 5 mg 08/24/23 09:00 08/25/23 20:37 Midodrine 5 Mg Tablet PO 5 mg TID ABHI Administration Pantoprazole Sodium 40 mg 08/23/23 09:00 08/25/23 17:26 Pantoprazole 40 Mg Sdv IVP 40 mg BID ABHI Administration Venlafaxine HCl 225 mg 08/24/23 09:00 08/25/23 08:54 Venlafaxine Er (24hr) 75 Mg Capsule PO 225 mg DAILY ABHI Administration Pertinent History/Comorbid Conditions* Medical History (Updated 08/22/23 @ 23:57 by Shahana Barnes MD) Psychiatric care No significant past medical history Surgical History (Updated 09/24/22 @ 23:08 by Steven Bal MD) No significant past surgical history Pertinent Exam Findings alert, oriented x 3 and clear to auscultation bilaterally Recommendations Surgery/Procedure today Coding Level of Care Code Acute Code for Chg Fwd
[2023-08-26] MEDS: sodium chloride 0.9% 1,000 ML 75 ML IV (08:30)
[2023-08-26] MEDS: piperacillin-tazobactam 3.375 GM in sodium chloride 0.9% (plus) 50 ML IV ×2 (08:32→20:40)
[2023-08-26] MEDS: midodrine 5 mg TABLET 10 MG PO ×3 (08:49→20:39)
[2023-08-26 10:09] LABS: Vancomycin Trough 14.3 ug/mL (10-15)
[2023-08-26] MEDS: vancomycin 1,000 MG in sodium chloride 0.9% 250 ML 250 MG IV (10:38)
--- NOTE | 2023-08-26 12:25 | P.ANESASSM_ITS ---
Pre-Anesthetic Assessment Height/Weight: Height 1.75 m Weight 54.295 kg Temp Pulse Resp BP Pulse Ox O2 Del Method 98.7 F 81 18 120/73 94 Room Air 08/26/23 12:07 08/26/23 12:07 08/26/23 12:07 08/26/23 12:07 08/26/23 12:07 08/26/23 12:07 Preop Diagnosis: rectal mass Operation Date: 08/26/23 11:35 Proposed Procedures p Proctoscopy(Not Applicable) - Eric Parikh MD Was Beta Kingsley taken within 24 hours: N/A Was Clonidine taken within 24 hours: N/A Last intake: Intake Last Liquid Date 08/25/23 Last Liquid Time 23:55 Last Solid Date 08/23/23 Last Solid Time 23:55 Social Alcohol Rare THC Exam alert, oriented x 3, clear to auscultation bilaterally and regular rate & rhythm Airway Submandibular: within normal limits Cervical ROM: within normal limits Mallampati: Class II Dentition: full History/ROS No significant history except as noted and No significant complaints Pulmonary None reported CV/HEM Deep Vein Thrombosis None reported Hepatic None reported GI None reported Rectal CA Metabolic None reported Musc/skel Weakness Neuropsych None reported Anesthetic Plan ASA status: 3 Anesthesia: Anesthesia Evaluation and MAC Risk of > 500 ml blood loss (7ml/kg in children): No Medications/Allergies Home Medications Medication Instructions Recorded Confirmed Last Taken Type donepezil 5 mg tablet 5 mg PO DAILY 03/22/23 08/23/23 Unknown History simvastatin 5 mg tablet 5 mg PO DAILY 03/22/23 08/23/23 Unknown History venlafaxine 225 mg tablet,extended 225 mg PO DAILY 03/22/23 08/23/23 Unknown History release 24 hr aspirin 81 mg tablet,delayed 81 mg PO DAILY 08/23/23 08/23/23 Unknown History release Allergies Allergy/AdvReac Type Severity Reaction Status Date / Time No Known Allergies Allergy Verified 08/22/23 17:01 Current Medications Generic Name Dose Route Start Last Admin Trade Name Netoq PRN Reason Stop Dose Admin Atorvastatin Calcium 40 mg 08/24/23 09:00 08/25/23 08:54 Atorvastatin 40 Mg Tablet PO 40 mg DAILY ABHI Administration Donepezil HCl 5 mg 08/24/23 09:00 08/25/23 08:54 Donepezil 5 Mg Tablet PO 5 mg DAILY ABHI Administration Heparin Sodium (Porcine) 0 unit 08/25/23 07:43 08/25/23 09:12 Heparin 5,000 Unit/Ml Inj 1 Ml IV 2,600 unit PRN PRN Administration Heparin weight-base protocol Protocol Piperacillin Sod/Tazobactam 50 mls @ 100 mls/hr 08/23/23 08:00 08/26/23 12:02 Sod 3.375 gm/ Sodium Chloride IV Infused Q12H ABHI Infusion Protocol Vancomycin HCl 1,000 mg/ 250 mls @ 250 mls/hr 08/24/23 10:00 08/26/23 12:02 Sodium Chloride IV Infused Q24H ABHI Infusion Sodium Chloride 1,000 mls @ 30 mls/hr 08/26/23 07:00 08/26/23 07:30 Sodium Chloride 0.9% IV 08/27/23 06:59 Not Given .Q24H ONE Sodium Chloride 1,000 mls @ 75 mls/hr 08/26/23 07:00 08/26/23 08:30 Sodium Chloride 0.9% IV 75 mls/hr .[id number] ABHI Administration Heparin Sodium/Sodium Chloride 25,000 unit in 500 mls @ 0 mls/hr 08/25/23 07:45 08/26/23 00:24 Heparin Drip IV 0 unit/kg/hr .Q0M ABHI 0 mls/hr Titration Protocol Per Protocol Sodium Chloride 1,000 mls @ 75 mls/hr 08/25/23 18:15 08/26/23 08:49 Sodium Chloride 0.9% IV Not Given .[id number] ABHI Midodrine 10 mg 08/26/23 09:00 08/26/23 08:49 Midodrine 5 Mg Tablet PO 10 mg TID ABHI Administration Pantoprazole Sodium 40 mg 08/23/23 09:00 08/25/23 17:26 Pantoprazole 40 Mg Sdv IVP 40 mg BID ABHI Administration Venlafaxine HCl 225 mg 08/24/23 09:00 08/25/23 08:54 Venlafaxine Er (24hr) 75 Mg Capsule PO 225 mg DAILY ABHI Administration PFSH Anesthesia Medical History Psychiatric care No significant past medical history Surgical History No significant past surgical history Data Anesthesia 08/26/23 00:59 08/26/23 00:59 Short CBC 08/25/23 08/26/23 Range/Units 05:21 00:59 WBC 6.31 7.28 (3.29-11.43) 10^3/uL Hgb 11.40 12.20 (11.27-16.99) g/dL Hct 35.5 L 38.5 (37-53) % MCV 92.2 92.5 (82-101) fl Plt Count 232 269 (157-399) 10^3/cmm Neut % (Auto) 78.8 86.7 % Neut # (Auto) 4.97 6.31 (1.8-7.7) 10^3/uL BMP 08/25/23 08/26/23 05:21 00:59 Sodium 133 L 131 L Potassium 3.9 3.5 Chloride 104 101 Carbon Dioxide 24 21 L BUN 17 16 Creatinine 0.9 0.7 Glucose 95 112 Calcium 7.9 L 7.7 L Liver Function 08/25/23 08/26/23 Range/Units 05:21 00:59 Total Bilirubin 1.4 H 1.5 H (0.15-1.2) mg/dL AST 11 9 (0-40) U/L ALT 6 7 (0-41) U/L Alkaline Phosphatase 109 127 (40-130) U/L Albumin 2.5 L 2.4 L (3.5-5.2) g/dL Coags 08/25/23 08/25/23 16:27 18:08 APTT Cancelled 93.2 H Cardiac Studies: 2 Echocardiogram 08/23/23
[2023-08-26] MEDS: sodium chloride 0.9% 1,000 ML 30 ML IV (12:34)
--- NOTE | 2023-08-26 13:09 | P.MISC_ITS ---
Miscellaneous Note Purpose of Documentation: Update on patient care Note: Proctoscopy was done multiple biopsies were taken, there was evidence of a large nearly obstructing rectal mass that extended all the way down to the anal verge. Patient can be restarted on anticoagulation tomorrow. She will require follow- up with medical oncology to discuss further therapy. No other intervention from the surgical standpoint is indicated at this time.
--- NOTE | 2023-08-26 13:12 | P.PN_ITS ---
Subjective 2 Subjective: Tito reported he was doing okay this morning. We have been waiting for his biopsy which she is having this afternoon. Denied any new complaints. Medications: Reviewed: Yes Vitals/I&O/Wt Last Vital Signs Temp 98.7 F 08/26/23 12:07 Pulse 81 08/26/23 12:07 Resp 18 08/26/23 12:07 BP 120/73 08/26/23 12:07 Pulse Ox 94 08/26/23 12:07 O2 Del Method Room Air 08/26/23 12:07 08/25/23 08/26/23 08/26/23 22:59 06:59 14:59 Intake Total 197.5 / 734.5 69.55 / 804.05 2300 / 2300 Output Total 110 / 110 100 / 100 Balance 87.5 / 624.5 69.55 / 694.05 2200 / 2200 Weight last 48 hrs Weight 54.295 kg Weight 54.295 kg Physical Exam 2 Narrative: General Exam: No distress Neck supple, no lymphadenopathy. Resp: on room air, lungs sounds diminished to auscultation, denies SOB with excertion Cardio: no JVD, regular rate, regular rhythm GI: nontender, normoactive bowel sounds Urinary Catheter Management: Coude: Cath Placed During This Visit: yes, but has since been removed by the nurse Reason for Continuing Indwelling Catheter: Acute Urinary Retention or Obstruction Urinary Catheter Date of Insertion: 08/26/23 Urinary Catheter Time of Insertion: 02:30 Date Urinary Catheter Removed: 08/26/23 Time Urinary Catheter Discontinued: 02:28 Data 08/26/23 00:59 08/26/23 00:59 A&P Assessment and plan (1) Rectal mass: Rectal mass with possible metastatic disease, significant lymphadenopathy around celiac axis. Patient continues to report constipation, and having several loose bowel movements. Rectal mass biopsy scheduled for today Concern was also for possible abscess. Currently on vancomycin and Zosyn. Surgery consultation appreciated CEA was elevated CT of chest this a.m. 08/24/23 demonstrated a subpleural interstitial thickening in the anterior aspect of the right upper lobe, indeterminate and a left adrenal nodule. and bilateral pleural effusions with adjacent atelectasis. (2) UTI (urinary tract infection): Urine culture negative (3) Sepsis: Continue board spectrum antibiotics of Zosyn, vancomycin. Blood culture negative today Urine culture negative Echo grossly normal EF (4) Protein calorie malnutrition: Dietary consultation. Ensure as dietary supplement. Currently on clear liquid diet for biopsy of rectal mass tomorrow morning. N.p.o. order for midnight. Consult OT, PT. Associated with global weakness (5) DVT (deep venous thrombosis): Heparin held for biopsy Resume anticoagulation following biopsy, will discuss with surgery (6) DIDIER (acute kidney injury): Likely due to dehydration, improvement noted. Langston catherter in place, monitor I&Os. BMP daily IV fluids initiated to prevent dehydration while: Preparation Plan History of short-term memory loss, dementia TSH normal at 2.81 on 08/23/23. B12 was previously checked and normal Anemia. Continue to monitor. CBC in the morning. No evidence of active bleeding Borderline low blood pressures. Cortisol level 20.8 on 08/24/23. Continue midodrine. Appears to be improved with midodrine. Full code currently Holding pharmacologic anticoagulation for procedure. SCDs continue Attestations 2 Medical Necessity Statement*: Needs continued hospitalization for evaluation of rectal mass with biopsy, resumption of anticoagulation for DVT Diagnoses Rectal mass K62.89 UTI (urinary tract infection) N39.0 Sepsis A41.9 Protein calorie malnutrition E46 DVT (deep venous thrombosis) I82.409 DIDIER (acute kidney injury) N17.9 Time Spent (min) 21
--- NOTE | 2023-08-26 13:35 | ANE.PACU2 ---
Inpatient post-anesthesia follow up: Airway intact: Yes Vital signs: Temperature 97.1 F Pulse Rate 68 Respiratory Rate 18 Blood Pressure 99/65 Pulse Oximetry 100 Oxygen Delivery Me thod Room Air Oxygen Flow Rate 4 Fraction of Inspir ed Oxygen Hydration adequate: Yes Nausea and vomiting: No Pain level: 1 Mental status: Baseline
[2023-08-26] MEDS: pantoprazole 40 mg SDV IVP ×2 (14:21→17:05)
[2023-08-26] MEDS: atorvastatin 40 mg Tablet PO (14:21)
[2023-08-26] MEDS: venlafaxine ER (24HR) 75 mg Capsule 225 MG PO (14:21)
[2023-08-26] MEDS: donepezil 5 MG Tablet PO (14:21)
[2023-08-26] MEDS: acetaminophen 500 mg Tablet PO (15:18)
[2023-08-26] MEDS: enoxaparin 60 mg/0.6 mL Syringe 50 MG SUBCUT (17:05)
[2023-08-27] VITALS: BP 98/61; PULSE 91; RESP 16; TEMP 36.8; O2SAT 94
[2023-08-27] MEDS: sodium chloride 0.9% 1,000 ML 75 ML IV (01:14)
[2023-08-27 04:00] VITALS: BP 107/70; PULSE 79; RESP 17; TEMP 36.6; O2SAT 95
[2023-08-27 05:15] LABS: Basophils % 0.1 %; Hematocrit 32.8 % (37-53); Lymphocytes # 0.5 10^3/uL (0.8-4.8); Lymphocytes % 6.2 %; Mean Corpuscular HGB Conc 32.9 g/dL (30-55); Mean Corpuscular Hemoglobin 29.7 pg (27-33); Mean Corpuscular Volume 90.1 fl (82-101); Mean Platelet Volume 11.3 fL (7.4-10.4); Monocytes # 0.9 10^3/uL (0.2-0.9); Monocytes % 11.3 %; Neutrophils # 6.25 10^3/uL (1.8-7.7); Neutrophils % 82.3 %; Nucleated Red Blood Cells % 0 %; Platelet Count 255 10^3/cmm (157-399); Red Blood Count 3.64 10^6/uL (3.85-5.65); Red Cell Distribution Width 17.9 % (12.1-15.1)
[2023-08-27 05:31] LABS: Anion Gap 12.3 (5-19); Blood Urea Nitrogen 19 mg/dL (8-23); Calcium 7.3 mg/dL (8.5-10.5); Carbon Dioxide 20 mmol/L (22-29); Chloride 106 mmol/L (98-107); Creatinine Clr Calc Pharmacy 67.8688; Glomerular Filtration Rate 112.1 mL/min (90-130); Glucose 99 mg/dL (65-115); Osmolality Calculated 282 mOsm/kg (285-295); Potassium 3.3 mmol/L (3.5-5.1); Sodium 135 mmol/L (136-145)
[2023-08-27] MEDS: enoxaparin 60 mg/0.6 mL Syringe 50 MG SUBCUT (05:36)
[2023-08-27 08:00] VITALS: BP 116/76; PULSE 96; RESP 18; TEMP 36.4; O2SAT 96
[2023-08-27 08:05] VITALS: PULSE 79; RESP 16; O2SAT 95
[2023-08-27] MEDS: piperacillin-tazobactam 3.375 GM in sodium chloride 0.9% (plus) 50 ML IV (08:44)
[2023-08-27] MEDS: potassium chloride ER 20 mEq Tablet 40 MEQ PO (08:45)
[2023-08-27] MEDS: donepezil 5 MG Tablet PO (08:45)
[2023-08-27] MEDS: midodrine 5 mg TABLET 10 MG PO (08:45)
[2023-08-27] MEDS: atorvastatin 40 mg Tablet PO (08:45)
[2023-08-27] MEDS: venlafaxine ER (24HR) 75 mg Capsule 225 MG PO (08:45)
[2023-08-27] MEDS: pantoprazole 40 mg SDV IVP (08:47)
[2023-08-27 12:00] VITALS: BP 118/82; PULSE 91; RESP 17; TEMP 36.5; O2SAT 97
--- NOTE | 2023-08-27 12:21 | PM.DCS ---
Discharge Providers Date of Admission: 08/22/23 21:34 Date of Discharge: August 27, 2023 Attending Provider at Admission: Shahana Barnes MD Attending Provider at Discharge: Adalberto Herman MD Diagnoses at Discharge Discharge Diagnosis (1) Rectal mass: Status: Acute (2) UTI (urinary tract infection): Status: Acute (3) Sepsis: Status: Acute (4) Protein calorie malnutrition: Status: Acute (5) DVT (deep venous thrombosis): Status: Acute (6) DIDIER (acute kidney injury): Status: Acute Reason for Visit Reason for Visit: WEAKNESS Hospital Course Hospital Course Patient is a 68-year-old white male who presented with profound weakness, and was found to have a rectal mass on CT with possible local metastasis with enlarged lymph nodes around the celiac access. Secondary to concomitant dehydration and acute kidney injury he was rehydrated. He was also found to have a DVT and anticoagulation was initiated. He was given antibiotics during his hospital course as initial CT demonstrated concern for extension of tumor versus abscess. He had no evidence of elevated white count or fever. There was some concern of UTI when admitted but urine culture did not grow any bacteria. CEA level was obtained and was elevated. CT chest demonstrated a pulmonary nodule but no obvious metastasis. I discussed with him, and his family possible further workup including biopsy. He agreed for further workup and a biopsy was performed by surgery on August 25. Patient remained stable after this. It was thought he could benefit from follow-up with oncology, on biopsy results. He will continue on anticoagulation. His underlying dementia may give him some difficulty with treatment options. Family is willing to assist with some decision making. He will be discharged on a short course of antibiotics for the initial concern of possible abscess associated with rectal malignancy, although this is thought to be less likely. He was given opportunity ask questions, and agreed with the plan. Family is aware as well. Ultimately, he may not be a good candidate for treatment of his rectal malignancy considering his dementia and performance characteristics although I would still like to him to see oncology as an outpatient to delineate this further. As far as anticoagulation for DVT he will go on Eliquis 10 mg twice a day for 1 week and then convert to 5 mg twice daily Physical Exam Narrative: General exam no distress Neck is supple Cardiovascular regular rate and rhythm Lungs clear Abdomen is soft Extremities no cyanosis clubbing or edema Urinary Catheter Management: Coude: Cath Placed During This Visit: yes, but has since been removed by the nurse Reason for Continuing Indwelling Catheter: Other Urinary Catheter Date of Insertion: 08/26/23 Urinary Catheter Time of Insertion: 02:30 Date Urinary Catheter Removed: 08/26/23 Time Urinary Catheter Discontinued: 02:28 Discharge Data Studies Completed and Pending Completed Studies During Hospitalization Category Date Time Status CT abdomen pelvis w con* [id number] Stat Cat Scan 08/22/23 18:[address] chest w con* [id number] Routine Cat Scan 08/25/23 07:[address] head wo con* [id number] Routine Cat Scan 08/23/23 12:38 Completed XR acute abdomen series [id number] Stat Exams 08/22/23 16:47 Completed CV. echo complete* [id number] Routine Ultrasound 08/23/23 00:01 Completed Pending at discharge Category Date Time Status Blood Culture Stat Lab 08/23/23 00:56 Results COVID [SARS Covid-2 Antigen] Routine Lab 08/27/23 11:30 Received Pathology: Surgical [PTH] Routine Pth 08/26/23 13:06 Received Radiology Impressions Chest/Abdomen X-ray 08/22/23 16:47 IMPRESSION: [id number] amount of retained formed colonic stool. Abdomen/Pelvis CT 08/22/23 18:24 IMPRESSION: 1. Findings consistent with locally advanced (likely T4) rectal neoplasm until proven otherwise. Nodular perirectal soft tissue abutting the pelvic floor and right seminal vesicle. Serosal deposit along the distal sigmoid. Right periorbital/ischiorectal abscess or contained perforation appears to be present, up to 3.5 x 1.6 cm. 2. Nodular thickening of the adrenal suspicious for metastatic disease is new since 09/21/2022 . Mildly enlarged celiac and gastrohepatic lymph nodes . Right upper quadrant omental nodularity versus adenopathy. 3. Findings consistent with large volume deep vein thrombus in the left iliac and femoral veins. 4. Severe weight loss compared to 09/21/2022 scan. Xekvngac-cx-jlime volume colonic stool retention. ADDENDUM: 08/22/231922 COMMENT: THIS REPORT CONTAINS FINDINGS THAT MAY BE CRITICAL TO PATIENT CARE. The exam findings were verbally communicated by me to KAYLIE Munoz via telephone conference at 7:19 PM CDT on 08/22/2023. The findings were acknowledged and understood. Chest CT 08/25/23 07:45 IMPRESSION: Bilateral pleural effusions with adjacent atelectasis. Underlying COPD. There is subpleural interstitial thickening in the anterior aspect of the right upper lobe, indeterminate. Follow-up in [address] of the thorax is suggested. Fleischner society criteria do not apply in a patient with suspected malignancy. Left adrenal nodule. COMMENTS: The presence of pulmonary emphysema on CT is an independent risk factor for lung cancer. In the absence of a history or active diagnosis of lung cancer, it is recommended that this patient with emphysema be evaluated for enrollment in a low dose CT lung cancer screening program. Laboratory Results WBC 7.60 10^3/uL (3.29-11.43) 08/27/23 04:18 RBC 3.64 10^6/uL (3.85-5.65) L 08/27/23 04:18 Hgb 10.80 g/dL (11.27-16.99) L 08/27/23 04:18 Hct 32.8 % (37-53) L 08/27/23 04:18 MCV 90.1 fl (82-101) 08/27/23 04:18 MCH 29.7 pg (27-33) 08/27/23 04:18 MCHC 32.9 g/dL (30-55) 08/27/23 04:18 RDW 17.9 % (12.1-15.1) H 08/27/23 04:18 Plt Count 255 10^3/cmm (157-399) 08/27/23 04:18 MPV 11.3 fL (7.4-10.4) H 08/27/23 04:18 Neut % (Auto) 82.3 % 08/27/23 04:18 Lymph % (Auto) 6.2 % 08/27/23 04:18 [place] % (Auto) 11.3 % 08/27/23 04:18 Eos % (Auto) 0.0 % 08/27/23 04:18 Baso % (Auto) 0.1 % 08/27/23 04:18 Neut # (Auto) 6.25 10^3/uL (1.8-7.7) 08/27/23 04:18 Lymph # (Auto) 0.5 10^3/uL (0.8-4.8) L 08/27/23 04:18 [place] # (Auto) 0.9 10^3/uL (0.2-0.9) 08/27/23 04:18 Eos # (Auto) 0.0 10^3/uL (0.0-0.8) 08/27/23 04:18 Baso # (Auto) 0.0 10^3/uL (0.0-0.1) 08/27/23 04:18 Nucleated RBC % (auto) 0 % 08/27/23 04:18 Nucleated RBCs # 0.0 /100WBC 08/27/23 04:18 APTT 93.2 SECONDS (23.9-36.7) H 08/25/23 18:08 Sodium 135 mmol/L (136-145) L 08/27/23 04:18 Potassium 3.3 mmol/L (3.5-5.1) L 08/27/23 04:18 Chloride 106 mmol/L (98-107) 08/27/23 04:18 Carbon Dioxide 20 mmol/L (22-29) L 08/27/23 04:18 Anion Gap 12.3 (5-19) 08/27/23 04:18 BUN 19 mg/dL (8-23) 08/27/23 04:18 Creatinine 0.7 mg/dL (0.7-1.2) 08/27/23 04:18 GFR Calculation 112.1 mL/min (90-130) 08/27/23 04:18 Glucose 99 mg/dL (65-115) 08/27/23 04:18 Calculated Osmolality 282 mOsm/kg (285-295) L 08/27/23 04:18 Lactic Acid 2.4 mmol/L (0.5-2.2) H 08/23/23 00:56 Lactic Acid (Sepsis) 1.6 mmol/L (0.5-2.2) 08/23/23 04:14 Uric Acid 7.5 mg/dL (3.4-7.0) H 08/22/23 22:40 Calcium 7.3 mg/dL (8.5-10.5) L 08/27/23 04:18 Magnesium 2.1 mg/dL (1.7-2.3) 08/23/23 00:56 Total Bilirubin 1.5 mg/dL (0.15-1.2) H 08/26/23 00:59 AST 9 U/L (0-40) 08/26/23 00:59 ALT 7 U/L (0-41) 08/26/23 00:59 Alkaline Phosphatase 127 U/L (40-130) 08/26/23 00:59 Lactate Dehydrogenase 201 U/L (135-225) 08/23/23 00:56 Creatine Kinase 36 U/L (39-308) L 08/23/23 00:56 Troponin T 5th Gen ng/L 37 ng/L (0-15) H 08/23/23 00:56 C-Reactive Protein 18.1 mg/L (0.0-4.9) H 08/23/23 00:56 NT-Pro-B Natriuret Pep 589 pg/mL (0-125) H 08/23/23 00:56 Total Protein 5.0 g/dL (6.6-8.7) L 08/26/23 00:59 Albumin 2.4 g/dL (3.5-5.2) L 08/26/23 00:59 Globulin 2.6 g/dL (1.3-4.6) 08/26/23 00:59 Amylase 27 U/L (28-100) L 08/22/23 17:25 Lipase 14 U/L (13-60) 08/22/23 17:25 Carcinoembryonic Ag 29.4 ng/mL (0.0-4.7) H 08/24/23 05:15 Vitamin B12 > 2000 pg/mL (232-1245) H 08/22/23 22:40 Procalcitonin 0.34 ng/mL (0-0.5) 08/22/23 17:25 TSH 2.81 uIU/mL (0.27-4.20) 08/23/23 04:14 Random Cortisol 20.83 ug/dL (2.47-19.5) H 08/24/23 05:15 Urine Color Brown (Yellow) A 08/22/23 20:10 Urine Appearance Clear (CLEAR) 08/22/23 20:10 Urine pH 5 (5-7) 08/22/23 20:10 Ur Specific [place] 1.020 (1.005-1.030) 08/22/23 20:10 Urine Protein 1+ (Negative) H 08/22/23 20:10 Urine Glucose (UA) Norm (Normal) 08/22/23 20:10 Urine Ketones 1+ (Negative) H 08/22/23 20:10 Urine Blood Trace (Negative) H 08/22/23 20:10 Urine Nitrate Positive (Negative) H 08/22/23 20:10 Urine Bilirubin 2+ (Negative) H 08/22/23 20:10 Urine Urobilinogen 4+ mg/dL (Negative) H 08/22/23 20:10 Ur Leukocyte Esterase Trace (Negative) H 08/22/23 20:10 Urine RBC 5-10 /hpf (0-2) H 08/22/23 20:10 Urine WBC 5-10 /hpf (0-5) H 08/22/23 20:10 Ur Squamous Epith Cells 0-4 /hpf (0-5) H 08/22/23 20:10 Amorphous Sediment 1+ /hpf 08/22/23 20:10 Urine Bacteria 2+ /hpf (NONE) H 08/22/23 20:10 Hyaline Casts 0-4 /lpf H 08/22/23 20:10 Urine Mucus 2+ /hpf 08/22/23 20:10 Vancomycin Trough 14.3 ug/mL (10-15) 08/26/23 09:31 Serum Ketones Negative (Negative) 08/22/23 17:25 Vitals Last Vital Signs Temp 97.7 F 08/27/23 12:00 Pulse 91 08/27/23 12:00 Resp 17 08/27/23 12:00 BP 118/82 08/27/23 12:00 Pulse Ox 97 08/27/23 12:00 O2 Del Method Room Air 08/27/23 08:05 O2 Flow Rate 4 08/26/23 13:07 Discharge Plan Discharge Patient Disposition: Xfer SNF Condition: Stable Prescriptions: New ciprofloxacin HCl 500 mg tablet 500 mg PO BID Qty: 14 0RF metronidazole 500 mg tablet 500 mg PO TID Qty: 21 0RF midodrine 5 mg Tablet 10 mg PO TID Qty: 180 0RF pantoprazole [Protonix] 40 mg tablet,delayed release (DR/EC) 40 mg PO BID 10 Days Qty: 60 0RF Eliquis DVT-PE Treat 30D Start 5 mg (74 tabs) tablets,dose pack See Rx Instructions .ROUTE .COMPLEX Qty: 74 0RF Rx Instructions: orally per package directions Continued simvastatin 5 mg tablet 5 mg PO DAILY donepezil 5 mg tablet 5 mg PO DAILY venlafaxine 225 mg tablet extended release 24hr 225 mg PO DAILY Aspir-81 81 mg Tablet,Delayed Release (Dr/Ec) 81 mg PO DAILY Discharge Orders: Discharge Order (Routine); Ordered 08/27/23 Ordered By: Adalberto Herman Referrals: State In home service Set Up [Other] (You can call this number to see if you qualify for in home services. ) [facility] [Outside] Cuate Rivera MD [Hospitalist] - 7-10 days Discharge Diet: Regular Discharge Activity: Increase activity as tolerated Patient Instructions: Opioid Safety Activity Restrictions/Additional Instructions: Take all medicine as prescribed Follow-up with oncology in approximately 10 days. Please make sure this happens for follow-up of his biopsy results. Eliquis dose should be 10 mg twice daily for 7 days and then 5 mg twice daily thereafter CBC, BMP in 1 week Discharge Attestations Time Spent in Discharge Care*: greater than 30 min Quality Metrics Clinical Quality Measures [ Venous Thromboembolism { Contraindication to Overlap Therapy: Overlap treatment not indicated; VTE Discharge Education: Education about anticoagulant therapy/Care Notes given; Contraindication to Pharm VTE Prophylaxis: None; Pharmacological prophylaxis given;}] Coding Level of Care Code 17743 Total time (in minutes) for Discharge: 41 Diagnoses Rectal mass K62.89 UTI (urinary tract infection) N39.0 Sepsis A41.9 Protein calorie malnutrition E46 DVT (deep venous thrombosis) I82.409 DIDIER (acute kidney injury) N17.9
[2023-08-27 12:31] LABS: SARS Covid-2 Antigen negative (Negative)
--- NOTE | 2023-08-27 13:24 | PC.NURSE ---
This nurse called report to Rita at [facility] at [phone].
--- NOTE | 2023-08-27 15:04 | PC.SOCIAL ---
IMM Update pg 2 of IMM updated and reviewed w/ patient. Copy provided and copy dated, initialed and placed in chart.
[2023-09-01 08:58] LABS: Mismatch Repari Proteins-IHC See Report
== END 2023-08-27 15:30 | disposition skilled nursing facility (03) | DRG 374 ==
LOC: ER 21:17 → MEDSURG 08-23 02:48
PROVIDERS: Emergency Medicine; Surgery; Admitting Provider Internal Medicine; Emergency Provider Emergency Medicine; Visit Provider Internal Medicine
PROC: 0DJD8ZZ Inspection of Lower Intestinal Tract, Via Natural or Artificial Opening Endoscopic (ICD-10-PCS; CPT 45300; principal; 2023-08-26 11:35)
DX: C20 Malignant neoplasm of rectum (principal); E43 Unspecified severe protein-calorie malnutrition; E87.20 Acidosis, unspecified; N17.9 Acute kidney failure, unspecified; I82.422 Acute embolism and thrombosis of left iliac vein; Z68.1 Body mass index [BMI] 19.9 or less, adult; R68.0 Hypothermia, not associated with low environmental temperature; E86.0 Dehydration; I12.9 Hypertensive chronic kidney disease with stage 1 through stage 4 chronic kidney disease, or unspecified chronic kidney disease; N18.9 Chronic kidney disease, unspecified; K59.00 Constipation, unspecified; N40.0 Benign prostatic hyperplasia without lower urinary tract symptoms; F03.90 Unspecified dementia, unspecified severity, without behavioral disturbance, psychotic disturbance, mood disturbance, and anxiety; D63.1 Anemia in chronic kidney disease; R91.1 Solitary pulmonary nodule; Z11.52 Encounter for screening for COVID-19; Z79.82 Long term (current) use of aspirin; Z80.0 Family history of malignant neoplasm of digestive organs
CPT/HCPCS: 36415; 45305; 51702; 70450; 71260; 74022; 74177; 80048; 80053; 80202; 81001; 82009; 82150; 82378; 82533; 82550; 82607; 83605; 83615; 83690; 83735; 83880; 84145; 84443; 84484; 84550; 85025; 85730; 86140; 87040; 87086; 87426; 88305; 88341; 88342; 93306; 96365; 96372; 97110; 97161; 97167; 97530; 97535; 99285; C9113; J1644; J1650; J2543; J2704; J3370; J7030; J7050; Q9967

== ENCOUNTER 2023-09-14 14:07 | Oncology outpatient (recurring) (ONCR) | payer MEDICARE, MEDICAID, SELFPAY ==
[2023-09-14 16:20] LABS: Basophils # 0.1 10^3/uL (0.0-0.1); Basophils % 0.9 %; Eosinophils # 0.1 10^3/uL (0.0-0.8); Eosinophils % 1.5 %; Hematocrit 47.6 % (37-53); Lymphocytes # 0.9 10^3/uL (0.8-4.8); Lymphocytes % 15.7 %; Mean Platelet Volume 8.9 fL (7.4-10.4); Monocytes # 0.5 10^3/uL (0.2-0.9); Monocytes % 8.3 %; Neutrophils # 3.96 10^3/uL (1.8-7.7); Neutrophils % 73.2 %; Nucleated Red Blood Cells % 0 %; Platelet Count 479 10^3/cmm (157-399); Red Blood Count 5.23 10^6/uL (3.85-5.65); Red Cell Distribution Width 16.4 % (12.1-15.1); White Blood Count 5.41 10^3/uL (3.29-11.43)
[2023-09-14 16:30] LABS: Reticulocyte % 3.1 % (0.5-2.0)
[2023-09-14 16:34] LABS: Erythrocyte Sedimentation Rate 13 mm/hr (0-10)
[2023-09-14 16:59] LABS: Alanine Aminotransferase 7 U/L (0-41); Albumin Level 2.7 g/dL (3.5-5.2); Alkaline Phosphatase 129 U/L (40-130); Anion Gap 13.7 (5-19); Aspartate Amino Transferase 13 U/L (0-40); Blood Urea Nitrogen 7 mg/dL (8-23); C Reactive Protein 63.6 mg/L (0.0-4.9); Calcium 8.3 mg/dL (8.5-10.5); Carbon Dioxide 31 mmol/L (22-29); Chloride 96 mmol/L (98-107); Creatinine Clr Calc Pharmacy 82.5085; Ferritin 513 ng/mL (30-400); Globulin 2.8 g/dL (1.3-4.6); Glucose 110 mg/dL (65-115); Iron 36 ug/dL (59-158); Lactate Dehydrogenase 206 U/L (135-225); Osmolality Calculated 285 mOsm/kg (285-295); Percent Saturation 28.1 % (20-50); Prostate Specific Antigen 0.648 ng/mL (0-4); Sodium 138 mmol/L (136-145); Thyroid Stimulating Hormone 5.94 uIU/mL (0.27-4.20); Total Bilirubin 0.4 mg/dL (0.15-1.2); Total Iron Binding Capacity 128 mcg/dl; Total Protein 5.5 g/dL (6.6-8.7); Unsaturated Iron Binding 92 ug/dL (112-347); Vitamin B12 1034 pg/mL (232-1245)
[2023-09-14 17:05] LABS: Hepatitis A Antibody IgM Non-Reactive (Nonreactive); Hepatitis B Core AB, Total Non-Reactive (Nonreactive); Hepatitis B Surface AB < 3.5 (11.5-1000); Hepatitis B Surface Antigen Non-Reactive (Nonreactive); Hepatitis C Virus Antibody Non-Reactive (Nonreactive)
[2023-09-14 17:15] LABS: Potassium 2.7 mmol/L (3.5-5.1)
[2023-09-14 17:16] LABS: Folate Level 4.3 ng/mL (4.5-32.2)
[2023-09-14 19:17] LABS: Alkaline Phosphatase 115 U/L (40-130); Magnesium 1.4 mg/dL (1.7-2.3)
[2023-09-14 19:33] LABS: 25 Hydroxy Vitamin D 33 ng/mL (30-100)
[2023-09-14 21:01] LABS: Carcinoembryonic Antigen 23.9 ng/mL (0.0-4.7); Free T4 Free Thyroxine 1.53 ng/dL (0.82-1.77)
[2023-09-16 07:44] LABS: HIV AG/AB 4th Generation NON-REACTIVE (NON-REACTIVE)
[2023-09-18 12:55] LABS: Soluble Transferrin Receptor 0.83 mg/L (0.76-1.76)
[2023-09-19 02:40] LABS: Methylmalonic Acid 70 nmol/L (87-318)
== END 2023-10-05 23:59 | disposition home or self-care (01) ==
PROVIDERS: PCP Family Medicine; Visit Provider Internal Medicine
DX: C20 Malignant neoplasm of rectum (principal); E83.51 Hypocalcemia; K59.00 Constipation, unspecified; E46 Unspecified protein-calorie malnutrition; I82.409 Acute embolism and thrombosis of unspecified deep veins of unspecified lower extremity; D64.9 Anemia, unspecified; Z92.21 Personal history of antineoplastic chemotherapy; Z11.59 Encounter for screening for other viral diseases
CPT/HCPCS: 36415; 80053; 82306; 82378; 82607; 82728; 82746; 83540; 83550; 83615; 83735; 83921; 84075; 84153; 84238; 84439; 84443; 85025; 85045; 85651; 86140; 86705; 86706; 86709; 86803; 87340; 87389; 99205

== ENCOUNTER 2023-09-27 18:35 | Emergency (ER) | payer MEDICARE, MEDICAID, SELFPAY ==
[2023-09-27 18:36] VITALS: BP 128/80; PULSE 120; RESP 18; TEMP 36.8; O2SAT 96; BMI 11.8
[2023-09-27 18:43] VITALS: BP 128/80; PULSE 120; RESP 18; O2SAT 96
--- NOTE | 2023-09-27 19:03 | XRR_ITS ---
PROCEDURE INFORMATION: Exam: XR Chest Exam date and time: 09/27/2023 7:08 PM Age: 68 years old Clinical indication: Other: AMS TECHNIQUE: Imaging protocol: Radiologic exam of the chest. Views: 1 view. COMPARISON: CT chest w con* [id number] 08/25/2023 8:29 AM FINDINGS: Lungs: Both lungs are chronically hyperinflated but demonstrate no evidence of mass or infiltrate. Pleural spaces: Unremarkable. No pleural effusion. No pneumothorax. Heart/Mediastinum: Unremarkable. No cardiomegaly. Bones/joints: Unremarkable. XR/XR chest 1V portable [id number] IMPRESSION: No acute findings.
--- NOTE | 2023-09-27 19:21 | ED_ITS ---
HPI - Altered Mental Status 2 General: Chief Complaint: Altered Mental Status Stated Complaint: unresponsive Time Seen by Provider: 09/27/23 19:03 History of Present Illness: Patient presents to the ER by EMS with complaints of unresponsiveness and was just lying in the floor floppy, when patient arrived here patient is alert and oriented to self and date of . Patient does not know what year it is. Patient denies any complaints at this time. And appears to answer questions appropriately. Review of Systems 2 General: Reports: 10 or more systems reviewed and unremarkable except in HPI and below PFSH ED 2 PFSH: Medical History Rectal adenocarcinoma Psychiatric care No significant past medical history Surgical History No significant past surgical history Physical Exam 2 Const: COMMON NORMALS: no acute distress, average body habitus, no limitations, healthy appearing, alert and well nourished HENMT: COMMON NORMALS: normocephalic, atraumatic, hearing grossly normal bilaterally, external ears normal, Normal external nose present, moist oral mucous membranes and oropharynx normal HEAD & SCALP: normocephalic and atraumatic NOSE: Normal external nose present EXTERNAL EAR: Yes external ears normal Eye: COMMON NORMALS: Equal, round and reactive pupils present, EOMs intact bilaterally, conjunctivae normal and no scleral icterus CONJUNCTIVA: Yes conjunctivae normal PUPIL: Yes Equal, round and reactive pupils present Neck/C-Spine: COMMON NORMALS: no JVD Chest: COMMONS NORMALS: normal inspection of the chest and normal palpation of entire chest wall Resp: COMMON NORMALS: normal respiratory effort, No retractions, No use of accessory muscles and clear to auscultation bilaterally AUSCULTATION: clear to auscultation bilaterally Cardio: COMMON NORMALS: no JVD, regular rate, S1 normal heart sound present, S2 normal heart sound present, No gallops present (Cardio), No clicks present (Cardio) and No murmurs present (Cardio); negative for regular rhythm (Tachycardic) RATE: regular rate RHYTHM: a bnormal rhythm (Tachycardic) HEART SOUNDS: S1 normal heart sound present and S2 normal heart sound present GI: COMMON NORMALS: Normal to inspection, nondistended, normoactive bowel sounds present, Soft to palpation, non-tender, No hepatosplenomegaly present and no masses PALPATION: Yes Soft to palpation and Yes No hepatosplenomegaly present Neuro: SENSORIUM/ORIENTATION: Yes alert Course 2 Vital Signs: Vital signs: Vital Signs Temperature 98.3 F 09/27/23 18:36 Pulse Rate 79 09/27/23 22:24 Respiratory Rate 16 09/27/23 22:24 Blood Pressure 127/79 09/27/23 22:24 Pulse Oximetry 99 09/27/23 22:24 Oxygen Delivery Me thod Room Air 09/27/23 18:43 MDM - Altered Mental Status Medical Decision Making Patient physical exam as well as lab work included CBC CMP troponins urinalysis chest x-ray, all of which was essentially benign except for an elevated troponin at 120 but a 2-hour troponin was 110 and patient did not complain of chest pain. Patient does not appear to appear to be altered at this time he does not know who he is where he is at he is just unsure of the year. Patient can carry on a conversation. Patient be discharged home for further evaluation and treatment. Differential Diagnosis Likely altered mental status; Unlikely alcoholic intoxication, delirium, dementia, hypoglycemia, hyponatremia, subarachnoid hemorrhage or sepsis Medical Records I reviewed the patient's medical records. Lab Data I reviewed the patient's lab results. 09/27/23 20:10 09/27/23 20:10 Radiology Impressions Chest X-Ray 09/27/23 19:03 IMPRESSION: No acute findings. Laboratory Results WBC 5.23 10^3/uL (3.29-11.43) 09/27/23 20:10 RBC 3.83 10^6/uL (3.85-5.65) L 09/27/23 20:10 Hgb 11.70 g/dL (11.27-16.99) 09/27/23 20:10 Hct 37.2 % (37-53) 09/27/23 20:10 MCV 97.1 fl (82-101) 09/27/23 20:10 MCH 30.5 pg (27-33) 09/27/23 20:10 MCHC 31.5 g/dL (30-55) 09/27/23 20:10 RDW 14.6 % (12.1-15.1) 09/27/23 20:10 Plt Count 573 10^3/cmm (157-399) H 09/27/23 20:10 MPV 9.1 fL (7.4-10.4) 09/27/23 20:10 Neut % (Auto) 66.2 % 09/27/23 20:10 Lymph % (Auto) 22.0 % 09/27/23 20:10 [place] % (Auto) 7.6 % 09/27/23 20:10 Eos % (Auto) 2.1 % 09/27/23 20:10 Baso % (Auto) 1.5 % 09/27/23 20:10 Neut # (Auto) 3.46 10^3/uL (1.8-7.7) 09/27/23 20:10 Lymph # (Auto) 1.2 10^3/uL (0.8-4.8) 09/27/23 20:10 [place] # (Auto) 0.4 10^3/uL (0.2-0.9) 09/27/23 20:10 Eos # (Auto) 0.1 10^3/uL (0.0-0.8) 09/27/23 20:10 Baso # (Auto) 0.1 10^3/uL (0.0-0.1) 09/27/23 20:10 Nucleated RBC % (auto) 0 % 09/27/23 20:10 Nucleated RBCs # 0.0 /100WBC 09/27/23 20:10 PT 12.80 SECONDS (12.1-14.9) 09/27/23 20:10 INR 0.94 (0.8-1.2) 09/27/23 20:10 Sodium 135 mmol/L (136-145) L 09/27/23 20:10 Potassium 3.9 mmol/L (3.5-5.1) 09/27/23 20:10 Chloride 97 mmol/L (98-107) L 09/27/23 20:10 Carbon Dioxide 29 mmol/L (22-29) 09/27/23 20:10 Anion Gap 12.9 (5-19) 09/27/23 20:10 BUN 11 mg/dL (8-23) 09/27/23 20:10 Creatinine 0.5 mg/dL (0.7-1.2) L 09/27/23 20:10 GFR Calculation 165.4 mL/min (90-130) H 09/27/23 20:10 Glucose 107 mg/dL (65-115) 09/27/23 20:10 Calculated Osmolality 280 mOsm/kg (285-295) L 09/27/23 20:10 Lactic Acid 2.0 mmol/L (0.5-2.2) 09/27/23 20:10 Calcium 9.4 mg/dL (8.5-10.5) 09/27/23 20:10 Magnesium 1.5 mg/dL (1.7-2.3) L 09/27/23 20:10 Total Bilirubin 0.4 mg/dL (0.15-1.2) 09/27/23 20:10 AST 10 U/L (0-40) 09/27/23 20:10 ALT 6 U/L (0-41) 09/27/23 20:10 Alkaline Phosphatase 114 U/L (40-130) 09/27/23 20:10 Troponin T Baseline 120 ng/L (0-15) H* 09/27/23 20:10 Troponin T 120 Minute 110.0 ng/L (0-15) H 09/27/23 22:17 Delta Troponin T -10.0 ABS# (0-10) L 09/27/23 22:17 C-Reactive Protein 12.5 mg/L (0.0-4.9) H 09/27/23 20:10 Total Protein 5.9 g/dL (6.6-8.7) L 09/27/23 20:10 Albumin 3.1 g/dL (3.5-5.2) L 09/27/23 20:10 Globulin 2.8 g/dL (1.3-4.6) 09/27/23 20:10 Procalcitonin 0.08 ng/mL (0-0.5) 09/27/23 20:10 Urine Color Yellow (Yellow) 09/27/23 20:39 Urine Appearance Clear (CLEAR) 09/27/23 20:39 Urine pH 6.5 (5-7) 09/27/23 20:39 Ur Specific [place] 1.010 (1.005-1.030) 09/27/23 20:39 Urine Protein Neg (Negative) 09/27/23 20:39 Urine Glucose (UA) Norm (Normal) 09/27/23 20:39 Urine Ketones Negative (Negative) 09/27/23 20:39 Urine Blood Neg (Negative) 09/27/23 20:39 Urine Nitrate Negative (Negative) 09/27/23 20:39 Urine Bilirubin Neg (Negative) 09/27/23 20:39 Urine Urobilinogen Neg mg/dL (Negative) 09/27/23 20:39 Ur Leukocyte Esterase Negative (Negative) 09/27/23 20:39 All radiology interpretation(s) finalized by discharge Discharge Plan Discharge Patient Disposition: Home Clinical Impression: Altered mental status Qualifiers: Altered mental status type: unspecified Qualified Code(s): R41.82 - Altered mental status, unspecified Condition: Stable Prescriptions: No Action tuberculin PPD 5 tub. unit /0.1 mL solution intradermal Fleet Enema 19-7 gram/118 mL enema [address] DAILY PRN potassium chloride 10 mEq packet 10 meq PO DAILY venlafaxine 225 mg tablet extended release 24hr 225 mg PO DAILY Eliquis DVT-PE Treat 30D Start 5 mg (74 tabs) tablets,dose pack See Rx Instructions .ROUTE .COMPLEX Qty: 74 0RF Rx Instructions: orally per package directions Discharge Orders: Discharge ED (Routine); Ordered 09/27/23 Ordered By: Greg Iqbal Referrals: Joey Stewart MD [Primary Care Provider] - 1 week Patient Instructions: Altered Mental Status (ED) Activity Restrictions/Additional Instructions: Your evaluation in the ER that included blood tests, urinalysis chest x-ray and evaluation did not show any acute cause of your altered mental status. You are able to hold conversation. You do know who you are where you are at your unfamiliar with what year it is however though. Please follow-up with your family practice physician within the next 7 days for further evaluation and treatment. Otherwise if anything changes please feel free to return to the ER. Coding Level of Care Code ED Package Sealer for Ruslan Pedraza
--- NOTE | 2023-09-27 19:48 | ECG_ITS ---
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 Measurements Intervals [place] Rate: 111 P: 86 KS: 147 QRS: 267 QRSD: 81 T: 89 QT: 301 QTc: 411 Interpretive Statements SINUS TACHYCARDIA INDETERMINATE AXIS PATTERN CONSISTENT WITH PULMONARY DISEASE Compared to ECG 05/02/2017 12:44:28 Indeterminate axis now present Sinus rhythm no longer present Electronically Signed On 09-28-2023 21:39:26 CDT by Darlin Sanchez M.D. [id number]
[2023-09-27 20:22] LABS: Basophils # 0.1 10^3/uL (0.0-0.1); Basophils % 1.5 %; Eosinophils # 0.1 10^3/uL (0.0-0.8); Eosinophils % 2.1 %; Hematocrit 37.2 % (37-53); Lymphocytes # 1.2 10^3/uL (0.8-4.8); Mean Corpuscular HGB Conc 31.5 g/dL (30-55); Mean Corpuscular Hemoglobin 30.5 pg (27-33); Mean Corpuscular Volume 97.1 fl (82-101); Mean Platelet Volume 9.1 fL (7.4-10.4); Monocytes # 0.4 10^3/uL (0.2-0.9); Monocytes % 7.6 %; Neutrophils # 3.46 10^3/uL (1.8-7.7); Neutrophils % 66.2 %; Nucleated Red Blood Cells % 0 %; Platelet Count 573 10^3/cmm (157-399); Red Blood Count 3.83 10^6/uL (3.85-5.65); Red Cell Distribution Width 14.6 % (12.1-15.1); White Blood Count 5.23 10^3/uL (3.29-11.43)
[2023-09-27 20:47] LABS: Alanine Aminotransferase 6 U/L (0-41); Albumin Level 3.1 g/dL (3.5-5.2); Alkaline Phosphatase 114 U/L (40-130); Anion Gap 12.9 (5-19); Aspartate Amino Transferase 10 U/L (0-40); Blood Urea Nitrogen 11 mg/dL (8-23); C Reactive Protein 12.5 mg/L (0.0-4.9); Calcium 9.4 mg/dL (8.5-10.5); Carbon Dioxide 29 mmol/L (22-29); Chloride 97 mmol/L (98-107); Creatinine Clr Calc Pharmacy 45.3588; Globulin 2.8 g/dL (1.3-4.6); Glomerular Filtration Rate 165.4 mL/min (90-130); Glucose 107 mg/dL (65-115); Magnesium 1.5 mg/dL (1.7-2.3); Osmolality Calculated 280 mOsm/kg (285-295); Potassium 3.9 mmol/L (3.5-5.1); Sodium 135 mmol/L (136-145); Total Bilirubin 0.4 mg/dL (0.15-1.2); Total Protein 5.9 g/dL (6.6-8.7)
[2023-09-27 20:53] LABS: Procalcitonin 0.08 ng/mL (0-0.5); Troponin(5th) Baseline 120 ng/L (0-15)
[2023-09-27 20:53] LABS: Add Urine Microscopic? NO; Bilirubin Urine Neg (Negative); Blood Urine Neg (Negative); Charge for UA Resulting for Rev; Glucose Urine UA Norm (Normal); Ketones Urine Negative (Negative); Leukocyte Esterase Urine Negative (Negative); Nitrate Urine Negative (Negative); Protein Urine Neg (Negative); Urine Appearance Clear (CLEAR); Urine Color Yellow (Yellow); Urobilinogen Urine Neg (Negative); pH Urine 6.5 (5-7)
[2023-09-27 20:56] LABS: INR 0.94 (0.8-1.2)
--- NOTE | 2023-09-27 20:56 | ECG_ITS ---
[facility] Test Date: 2023-09-27 Pat Name: Tito Camp Department: Room: Gender: Male Prepper: : 1955 Requested By: Greg Iqbal Order Number: [id number] Braeden MD: Darlin Sanchez M.D. Measurements Intervals [place] Rate: 130 P: 90 VA: 116 QRS: -85 QRSD: 93 T: 91 QT: 333 QTc: 490 Interpretive Statements SINUS TACHYCARDIA WITH SHORT VA INTERVAL LEFT AXIS DEVIATION [QRS AXIS < -30] PATTERN CONSISTENT WITH PULMONARY DISEASE ABNORMAL QRS-T ANGLE [QRS-T AXIS DIFFERENCE > 60] Compared to ECG 09/27/2023 19:48:14 Short VA interval now present Left-axis deviation now present Indeterminate axis no longer present Electronically Signed On 09-28-2023 21:46:08 CDT by Darlin Sanchez M.D. [id number]
[2023-09-27 22:24] VITALS: BP 127/79; PULSE 79; RESP 16; O2SAT 99
[2023-09-28 00:54] VITALS: BP 122/60; PULSE 80; RESP 18; O2SAT 98
== END 2023-09-28 00:57 | disposition home or self-care (01) ==
PROVIDERS: Emergency Provider Emergency Medicine; PCP Family Medicine
DX: R41.82 Altered mental status, unspecified (principal); Z79.01 Long term (current) use of anticoagulants
CPT/HCPCS: 36415; 71045; 80053; 81003; 83605; 83735; 84145; 84484; 85025; 85610; 86140; 93005; 99285

== ENCOUNTER 2023-10-26 08:03 | Outpatient (CLI) | payer MEDICARE, MEDICAID, SELFPAY ==
--- NOTE | 2023-10-26 09:00 | PETR_ITS ---
PROCEDURE INFORMATION: Exam: PET/CT Skull Base to Mid-thigh Exam date and time: 10/26/2023 9:10 AM Age: 68 years old Clinical indication: Condition or disease; Primary cancer: Rectal adenocarcinoma; Follow-up oncological assessment; Prior surgery; Surgery date: 6+ months; Surgery type: Hernia, appy LABS AND CLINICAL REPORTS: Glucose: 112 mg/dl Treatment strategy for malignancy (PET staging): Initial Staging (PI) TECHNIQUE: Imaging protocol: Following at least four-hour fasting and following the injection of radiopharmaceutical, low dose CT images were obtained. Then, PET images were obtained. Attenuation corrected images were constructed using the CT scan. Fused images of PET and CT were reviewed. The standardized uptake values (SUV) reported below are maximum values within a region of interest, expressed in gm/ml. Exam includes orbital meatal line to mid-thigh. Radiopharmaceutical: 9.8 mCi F-18 FDG (Fluorodeoxyglucose), IV. Time of imaging post radiopharmaceutical administration: 1 hour Injection site: Left forearm COMPARISON: CT chest w con* [id number] 08/25/2023 8:29 AM FINDINGS: Brain: Visualized brain has normal physiologic uptake. Pharynx: No abnormal uptake. Larynx: No abnormal uptake. Lungs, pleura and trachea: No abnormal uptake. Heart: Normal physiologic uptake. Mediastinal space: No abnormal uptake. Liver: No abnormal uptake. Gallbladder and bile ducts: No abnormal uptake. Pancreas: No abnormal uptake. Spleen: No abnormal uptake. Adrenal glands: Enlarging right adrenal mass measuring 3.0 x 1.9 cm with avid FDG uptake/max SUV 10.2. There is also avid uptake within the right adrenal gland with a max SUV of 8.2. The right adrenal gland appears thickened with no clear focal mass. Right adrenal metastasis PROCEDURE INFORMATION: Kidneys and ureters: Normal physiologic uptake. Stomach and bowel: Areas redemonstration of lobulated area perirectal soft tissue along the right mesorectal fascia measuring 2.1 x 3.8 cm and abutting the posterior bladder wall/base of the right seminal vesicle. Additional areas of nodular soft tissue and mesorectal fat stranding noted around the rectum in this region. There is a broad region of FDG-avid uptake in this region with a max SUV of 147. This includes the rectal and perirectal soft tissues which extends to and abuts the left pelvic sidewall and pelvic floor. Vasculature: No abnormal uptake. Lymph nodes: Right inguinal adenopathy with a max SUV of 3.6. Skeleton: No abnormal uptake in the visualized axial and appendicular skeleton. Soft tissues: There remains an ill-defined area of inflammation in the right gluteal soft tissues which most likely reflects abscess/phlegmon given suspected perforation on prior study. Localized extension of disease is an additional consideration. Other findings: There is focal uptake in the periurethral region max SUV of 9.2. There is focal uptake just medial to the right acetabulum with a max SUV of 6.6. There is no clear masslike density in this region, there is some bowel located in this region, unclear if this represents a potential peritoneal deposit, adenopathy, or bowel activity. PET[facility] IN[facility] [id number] IMPRESSION: 1. Redemonstrated findings of locally advanced rectal adenocarcinoma with a large tumor deposit in the right mesorectal soft tissues abutting the posterior bladder/seminal vesicle. There is a broad region of FDG avid uptake in the rectal/perirectal soft tissues seen abutting the left pelvic sidewall and pelvic floor. 2. Enlarged right inguinal lymph node with avid FDG uptake consistent with metastatic adenopathy. 3. Enlarging left adrenal metastasis. FDG avid uptake in the right adrenal gland with no clearly identifiable mass on CT, findings raise suspicion for developing right adrenal metastasis. 4. There remains ill-defined inflammation and FDG uptake within the right gluteal soft tissues this most likely reflects abscess/phlegmon given suspected colonic perforation on prior study. Localized extension of disease is an additional consideration. 5. Nonspecific focal FDG avid uptake in the periurethral region. This would be an atypical location for metastasis, but cannot be entirely excluded.
== END 2023-10-26 08:04 | disposition home or self-care (01) ==
PROVIDERS: PCP Family Medicine; Visit Provider Internal Medicine
DX: C20 Malignant neoplasm of rectum (principal); C74.91 Malignant neoplasm of unspecified part of right adrenal gland; E27.8 Other specified disorders of adrenal gland; M79.9 Soft tissue disorder, unspecified; R59.9 Enlarged lymph nodes, unspecified
CPT/HCPCS: 78815; A9552

== ENCOUNTER 2023-11-09 07:52 | Oncology outpatient (recurring) (ONCR) | payer MEDICARE, MEDICAID, SELFPAY ==
--- NOTE | 2023-11-09 08:00 | CTR_ITS ---
PROCEDURE INFORMATION: Exam: CT Abdomen And Pelvis Without And With Contrast Exam date and time: 11/09/2023 8:21 AM Age: 68 years old Clinical indication: Condition or disease; Other: Rectal adenocarcinoma, prior surgery; Surgery date: 6+ months; Surgery type: Hernia; Patient HX: Rectal adenocarcinoma. Previous CT shows concerning for adrenal mets, omental nodule and ascites. ; Additional info: Rectal adenocarcinoma, adrenal protocol TECHNIQUE: Imaging protocol: Computed tomography of the abdomen and pelvis without and with contrast. Radiation optimization: All CT scans at this facility use at least one of these dose optimization techniques: automated exposure control; mA and/or kV adjustment per patient size (includes targeted exams where dose is matched to clinical indication); or iterative reconstruction. Contrast material: OMNI 350; Contrast volume: 75 ml; Contrast route: INTRAVENOUS (IV); COMPARISON: PT PET [facility] INITIAL [id number] 10/26/2023 9:10 AM RADIATION DOSE METRICS: Total DLP (mGy-cm): 489.89 FINDINGS: Liver: Hepatic steatosis. No convincing evidence of hepatic metastasis. There are 2 distinct right adrenal metastases/masses abutting the medial aspect of the right hepatic lobe, inseparable from the liver capsule raising the question of early liver invasion (for example, images 54 and 57 of series 8). Gallbladder and bile ducts: Grossly unremarkable. No evidence of inflammatory changes. No biliary dilatation. Pancreas: Grossly unremarkable. Spleen: Grossly unremarkable. Adrenal glands: Bilateral adrenal metastases. There has been interval enlargement with the left adrenal metastasis measuring approximately 3.6 cm in maximal diameter in comparison to 3.2 cm on prior PET-CT from just 2 weeks prior. There are 2 discrete right adrenal masses/metastases (images 56 and 54 of series 8). These measure approximately 3.4 and 2.4 cm, respectively. Kidneys and ureters: No evidence of renal parenchymal abnormality. No hydronephrosis or ureteral stone. Stomach and bowel: There is been interval development of marked dilatation of the colon suggestive of distal large bowel obstruction with the ascending colon measuring up to 10 cm and transverse colon measuring up to 6.8 cm. Intraperitoneal space: No evidence of free air or fluid collection. Vasculature: Moderate aortobiiliac atherosclerosis without aneurysmal dilatation or dissection. The celiac trunk, SMA and MICHAEL are grossly patent. No evidence of IVC thrombus. The portal vein, SMV and splenic veins are grossly patent. Lymph nodes: No diana adenopathy. There are few prominent and borderline enlarged upper abdominal nodes including a 9 mm short axis gastrohepatic node concerning for a pathologic node (image 34 of series 5). There is an adjacent smaller node, which may also represent a pathologic node. Bones/joints: No evidence of acute fracture or aggressive osseous lesion. Soft tissues: No evidence of fluid collection or hematoma in the superficial soft tissues. CT/CT abdomen wo/w con [id number] IMPRESSION: 1. Large bowel obstruction. 2. Bilateral adrenal metastases. The findings were verbally communicated by telephone with Dr. Rivera at 5:17 PM CDT on 11/09/2023.
[2023-11-09] MEDS: iohexol 350 mg/mL 500 mL Btl (per mL) IV (08:29)
== END 2023-12-05 23:59 | disposition home or self-care (01) ==
PROVIDERS: PCP Family Medicine; Visit Provider Internal Medicine
DX: C20 Malignant neoplasm of rectum (principal); K56.609 Unspecified intestinal obstruction, unspecified as to partial versus complete obstruction; C79.72 Secondary malignant neoplasm of left adrenal gland; C79.71 Secondary malignant neoplasm of right adrenal gland
CPT/HCPCS: 74170; Q9967

== ENCOUNTER 2023-11-10 09:51 | Emergency (ER) | payer MEDICARE, MEDICAID, SELFPAY ==
[2023-11-10 09:56] VITALS: BP 103/73; PULSE 105; RESP 18; TEMP 36.8; O2SAT 100; BMI 12.4
--- NOTE | 2023-11-10 10:05 | PC.NURSE ---
THIS NURSE CALLED CTC. PATIENT HAS LOCALIZED RECTAL CANCER.
--- NOTE | 2023-11-10 10:07 | ED_ITS ---
HPI - Abdominal Pain 2 General: Chief Complaint: Abdominal Pain Stated Complaint: Lg bowel obst. Time Seen by Provider: 11/10/23 10:03 Source: patient and EMS Mode of arrival: EMS Limitations: no limitations History of Present Illness: 68-year-old male who is here from [facility] patient has a history of rectal adenocarcinoma been having some abdominal distention and some mild pain and had a CT scan done yesterday that showed a large bowel obstruction his oncologist called wanting to be seen in the ER. Patient resting comfortably currently denies any pain currently has had no vomiting Associated Symptoms: Denies chills, diarrhea, fever(s), nausea and vomiting Review of Systems 2 Const: Denies: fever(s), chills, body aches or change in appetite ENMT: Denies: throat pain or dental pain Card: Denies: chest pain Resp: Denies: dyspnea GI: Denies: abdominal pain, nausea, vomiting or diarrhea Musc: Denies: neck pain or back pain Skin/Breast: Denies: rash Neuro: Denies: headache(s) PFSH ED 2 PFSH: Medical History Rectal adenocarcinoma Psychiatric care No significant past medical history Surgical History No significant past surgical history Physical Exam 2 Const: COMMON NORMALS: no acute distress, patient oriented x3 and healthy appearing HENMT: COMMON NORMALS: normocephalic and atraumatic HEAD & SCALP: n ormocephalic and atraumatic Eye: COMMON NORMALS: Equal, round and reactive pupils present and EOMs intact bilaterally PUPIL: Yes Equal, round and reactive pupils present Neck/C-Spine: COMMON NORMALS: full ROM and supple Chest: COMMONS NORMALS: normal inspection of the chest and normal palpation of entire chest wall Resp: COMMON NORMALS: normal respiratory effort, No retractions, No use of accessory muscles and clear to auscultation bilaterally AUSCULTATION: clear to auscultation bilaterally Cardio: COMMON NORMALS: regular rate, regular rhythm and No murmurs present (Cardio) RATE: regular rate RHYTHM: regular rhythm GI: COMMON NORMALS: Normal to inspection, nondistended, normoactive bowel sounds present, Soft to palpation, non-tender and no masses PALPATION: Yes Soft to palpation Extremity: COMMON NORMALS: normal to inspection and full ROM Neuro: COMMON NORMALS: patient oriented x3, moves all extremities and no focal motor deficits Psych: COMMON NORMALS: mental status grossly normal, Normal thought process present and cooperative THOUGHT PROCESS: Normal thought process present Skin: COMMON NORMALS: no rashes or lesions noted and no wounds GENERAL SKIN EXAM: no rashes or lesions noted Course 2 Vital Signs: Vital signs: Vital Signs Temperature 98.3 F 11/10/23 09:56 Pulse Rate 104 H 11/10/23 12:12 Respiratory Rate 18 11/10/23 09:56 Blood Pressure 111/79 11/10/23 12:12 Pulse Oximetry 100 11/10/23 12:12 Oxygen Delivery Me thod Room Air 11/10/23 12:12 MDM - Abdominal Pain Medical Decision Making Patient presents for large bowel obstruction likely from his rectal mass I did speak to Dr. Ortiz who feels he needs a higher level of care of colorectal surgery did talk to [facility] will transfer there for higher level of care. Medical Records I reviewed the patient's medical records. Lab Data I reviewed the patient's lab results. 11/10/23 10:47 11/10/23 10:47 Labs/Radiology: Laboratory Results WBC 11.27 10^3/uL (3.29-11.43) 11/10/23 10:47 RBC 3.88 10^6/uL (3.85-5.65) 11/10/23 10:47 Hgb 11.70 g/dL (11.27-16.99) 11/10/23 10:47 Hct 36.7 % (37-53) L 11/10/23 10:47 MCV 94.6 fl (82-101) 11/10/23 10:47 MCH 30.2 pg (27-33) 11/10/23 10:47 MCHC 31.9 g/dL (30-55) 11/10/23 10:47 RDW 13.6 % (12.1-15.1) 11/10/23 10:47 Plt Count 567 10^3/cmm (157-399) H 11/10/23 10:47 MPV 9.4 fL (7.4-10.4) 11/10/23 10:47 Neut % (Auto) 75.9 % 11/10/23 10:47 Lymph % (Auto) 14.1 % 11/10/23 10:47 [place] % (Auto) 9.0 % 11/10/23 10:47 Eos % (Auto) 0.4 % 11/10/23 10:47 Baso % (Auto) 0.3 % 11/10/23 10:47 Neut # (Auto) 8.57 10^3/uL (1.8-7.7) H 11/10/23 10:47 Lymph # (Auto) 1.6 10^3/uL (0.8-4.8) 11/10/23 10:47 [place] # (Auto) 1.0 10^3/uL (0.2-0.9) H 11/10/23 10:47 Eos # (Auto) 0.0 10^3/uL (0.0-0.8) 11/10/23 10:47 Baso # (Auto) 0.0 10^3/uL (0.0-0.1) 11/10/23 10:47 Nucleated RBC % (auto) 0 % 11/10/23 10:47 Nucleated RBCs # 0.0 /100WBC 11/10/23 10:47 Sodium 128 mmol/L (136-145) L 11/10/23 10:47 Potassium 2.9 mmol/L (3.5-5.1) L 11/10/23 10:47 Chloride 95 mmol/L (98-107) L 11/10/23 10:47 Carbon Dioxide 19 mmol/L (22-29) L 11/10/23 10:47 Anion Gap 16.9 (5-19) 11/10/23 10:47 BUN 19 mg/dL (8-23) 11/10/23 10:47 Creatinine 0.5 mg/dL (0.7-1.2) L 11/10/23 10:47 GFR Calculation 165.4 mL/min (90-130) H 11/10/23 10:47 Glucose 93 mg/dL (65-115) 11/10/23 10:47 Calculated Osmolality 268 mOsm/kg (285-295) L 11/10/23 10:47 Lactic Acid 1.2 mmol/L (0.5-2.2) 11/10/23 10:47 Calcium 8.2 mg/dL (8.5-10.5) L 11/10/23 10:47 Magnesium 2.1 mg/dL (1.7-2.3) 11/10/23 10:47 Total Bilirubin 0.2 mg/dL (0.15-1.2) 11/10/23 10:47 AST 8 U/L (0-40) 11/10/23 10:47 ALT < 5 U/L (0-41) 11/10/23 10:47 Alkaline Phosphatase 103 U/L (40-130) 11/10/23 10:47 Total Protein 5.6 g/dL (6.6-8.7) L 11/10/23 10:47 Albumin 2.9 g/dL (3.5-5.2) L 11/10/23 10:47 Globulin 2.7 g/dL (1.3-4.6) 11/10/23 10:47 Lipase 8 U/L (13-60) L 11/10/23 10:47 No radiology studies performed this visit Discharge Plan Discharge Patient Disposition: Xfer Short-Term Hosp Clinical Impression: Rectal mass, Large bowel obstruction Condition: Stable Prescriptions: No Action Fleet Enema 19-7 gram/118 mL enema 118 ml [place] DAILY PRN (Reason: Constipation) multivitamin Tablet 1 tab PO QAM albuterol sulfate 0.63 mg/3 mL Solution For Nebulization 0.63 mg INHALATION Q4H PRN (Reason: Shortness Of Breath) acetaminophen 325 mg Tablet 650 mg PO Q4H PRN (Reason: GENERAL DISCOMFORT) venlafaxine 75 mg capsule,extended release 24hr 75 mg PO DAILY Rx Instructions: ALONG WITH 150MG TO= 225MG TOTAL venlafaxine 150 mg capsule,extended release 24hr 150 mg PO DAILY Rx Instructions: ALONG WITH 75MG [id number] TOTAL potassium chloride 20 mEq tablet,ER particles/crystals 20 meq PO BID Milk of Magnesia 400 mg/5 mL Suspension 30 ml PO DAILY PRN (Reason: Constipation) Dulcolax (bisacodyl) 10 mg Suppository 10 mg [place] DAILY PRN (Reason: Constipation) Risperdal 1 mg Tablet 1 mg PO BID TwoCal HN Liquid 1 ea PO TID TwoCal HN Liquid 1 ea PO BID Eliquis 5 mg tablet 5 mg PO BID Referrals: Terry,Joey A, MD [Primary Care Provider] - Coding Level of Care Code ED Wire Dropper for Ruslan Pedraza
[2023-11-10 10:14] VITALS: BP 103/73; PULSE 102; O2SAT 100
[2023-11-10 11:12] LABS: Basophils % 0.3 %; Eosinophils % 0.4 %; Hematocrit 36.7 % (37-53); Lymphocytes # 1.6 10^3/uL (0.8-4.8); Lymphocytes % 14.1 %; Mean Corpuscular HGB Conc 31.9 g/dL (30-55); Mean Corpuscular Hemoglobin 30.2 pg (27-33); Mean Corpuscular Volume 94.6 fl (82-101); Mean Platelet Volume 9.4 fL (7.4-10.4); Neutrophils # 8.57 10^3/uL (1.8-7.7); Neutrophils % 75.9 %; Nucleated Red Blood Cells % 0 %; Platelet Count 567 10^3/cmm (157-399); Red Blood Count 3.88 10^6/uL (3.85-5.65); Red Cell Distribution Width 13.6 % (12.1-15.1); White Blood Count 11.27 10^3/uL (3.29-11.43)
[2023-11-10 11:19] VITALS: BP 100/70; PULSE 102; O2SAT 98
[2023-11-10 11:36] LABS: Lactic Sepsis W/Reflex 1.2 mmol/L (0.5-2.2)
[2023-11-10 11:37] LABS: Alanine Aminotransferase < 5 U/L (0-41); Albumin Level 2.9 g/dL (3.5-5.2); Alkaline Phosphatase 103 U/L (40-130); Anion Gap 16.9 (5-19); Aspartate Amino Transferase 8 U/L (0-40); Blood Urea Nitrogen 19 mg/dL (8-23); Calcium 8.2 mg/dL (8.5-10.5); Carbon Dioxide 19 mmol/L (22-29); Chloride 95 mmol/L (98-107); Creatinine Clr Calc Pharmacy 47.6275; Globulin 2.7 g/dL (1.3-4.6); Glomerular Filtration Rate 165.4 mL/min (90-130); Glucose 93 mg/dL (65-115); Lipase 8 U/L (13-60); Osmolality Calculated 268 mOsm/kg (285-295); Sodium 128 mmol/L (136-145); Total Bilirubin 0.2 mg/dL (0.15-1.2); Total Protein 5.6 g/dL (6.6-8.7)
[2023-11-10 11:40] LABS: Potassium 2.9 mmol/L (3.5-5.1)
[2023-11-10 12:12] VITALS: BP 111/79; PULSE 104; O2SAT 100
[2023-11-10 12:21] LABS: Magnesium 2.1 mg/dL (1.7-2.3)
[2023-11-10 14:13] VITALS: BP 110/76; PULSE 112
[2023-11-10 15:56] VITALS: BP 110/76; PULSE 112; RESP 18; TEMP 36.8; O2SAT 100
== END 2023-11-10 16:03 | disposition short-term general hospital (02) ==
PROVIDERS: Emergency Provider Emergency Medicine; PCP Family Medicine
DX: K62.9 Disease of anus and rectum, unspecified (principal); K56.609 Unspecified intestinal obstruction, unspecified as to partial versus complete obstruction; Z79.01 Long term (current) use of anticoagulants
CPT/HCPCS: 36415; 80053; 83605; 83690; 83735; 85025; 99283